=== PATIENT | male | born 1955 | race Caucasian/White ===

== ENCOUNTER 2022-04-11 16:08 | Outpatient (CLI) | payer OTHER, SELFPAY ==
[2022-04-11 16:54] LABS: Anion Gap 7 mmol/L (8-16); Blood Urea Nitrogen 28 mg/dL (9-20); Calcium 8.9 mg/dL (8.4-10.2); Carbon Dioxide 27 mmol/L (22-30); Chloride 101 mmol/L (98-107); Estimated Glomerular Filt Rate > 60; Glucose 112 mg/dL (65-110); Potassium 4.6 mmol/L (3.4-5.0); Sodium 135 mmol/L (137-145)
== END 2022-04-11 16:09 | disposition home or self-care (01) ==
PROVIDERS: PCP Family Medicine; Visit Provider Radiology Radiation Oncology
DX: I50.9 Heart failure, unspecified (principal); I42.9 Cardiomyopathy, unspecified
CPT/HCPCS: 36415; 80048

== ENCOUNTER 2022-04-25 08:53 | Outpatient (CLI) | payer OTHER, SELFPAY ==
[2022-04-25 10:27] LABS: Anion Gap 4 mmol/L (8-16); Blood Urea Nitrogen 32 mg/dL (9-20); Calcium 8.6 mg/dL (8.4-10.2); Carbon Dioxide 33 mmol/L (22-30); Chloride 101 mmol/L (98-107); Estimated Glomerular Filt Rate > 60; Glucose 109 mg/dL (65-110); Potassium 4.4 mmol/L (3.4-5.0); Sodium 138 mmol/L (137-145)
== END 2022-04-25 08:54 | disposition home or self-care (01) ==
LOC: ANHLAB 08:56
PROVIDERS: PCP Family Medicine; Visit Provider Internal Medicine Interventional Cardiology
DX: I10 Essential (primary) hypertension (principal)
CPT/HCPCS: 36415; 80048

== ENCOUNTER 2022-09-25 19:58 | Emergency (ER) | payer OTHER, SELFPAY ==
--- NOTE | ~2022-09-25 | CT_ITS ---
EXAMINATION: CT abdomen pelvis wo con DATE: 09/25/2022 20:36 INDICATION: rt flank pain TECHNIQUE: Computed tomography (CT) of the abdomen and pelvis was performed without intravenous contr ast. Automated exposure control and iterative reconstruction technique were employed. The dose-length product was 488.69 mGy-cm. COMPARISON: 08/02/2017. FINDINGS: Lower thorax: Unremarkable Liver: Normal. Biliary/Gallbladder: Cholelithiasis. No bile duct dilation. Pancreas: No mass or duct dilation. Spleen: Normal. Adrenals:No mass. Kidneys: No mass, stone, or hydronephrosis. GI tract: No small or large bowel dilation. Normal appendix. Mesentery/Peritoneum: No ascites, mass, or free air. Retroperitoneum: No mass. Pelvis: Pelvic organs are within normal limits. Soft Tissues: Soft tissues and body wall unremarkable. Bones: No acute osseous finding. Anterior screw and plate lower lumbar fusion from L4 to S1. Interbo dy devices are in good position. Redemonstration of fractured inferior fixation screws. IMPRESSION: No acute abdominopelvic process detected. Reviewed, dictated and finalized at location K.
[2022-09-25 20:04] VITALS: BP 127/79; PULSE 80; RESP 20; TEMP 35.9; O2SAT 99
--- NOTE | 2022-09-25 20:17 | ED.BACK ---
HPI - Back Pain/Injury General Chief Complaint: Back Pain/Injury Stated Complaint: found on ground, d/t back pain Time Seen by Provider: 09/25/22 20:13 History of Present Illness HPI Narrative: 7-year-old male presents to the emergency room for evaluation of right lower back pain. Patient states that he has had intermittent low back pain for 1 month, has not been taking any medications to relieve his symptoms and is not sought evaluation for it. Patient states the pain is worse with rotation and lateral bend. Patient denies any hematuria or urinary retention. No history of kidney stones. Patient states that family found him in the backyard lying on the ground because it was too painful for him to get up. Related Data Allergies Allergy/AdvReac Type Severity Reaction Status Date / Time No Known Allergies Allergy Verified 09/25/22 20:07 Review of Systems Review of Systems: CONSTITUTIONAL: Denies fever, chills, or sweats. EYES: Denies visual changes, redness, or discharge. ENT: Denies rhinorrhea, congestion, sore throat, or otalgia. CARDIOVASCULAR: Denies chest pain, palpitations, or edema. RESPIRATORY: Denies cough or dyspnea. GASTROINTESTINAL: Denies abdominal pain, nausea, vomiting, or diarrhea. GENITOURINARY: Denies dysuria or hematuria. SKIN: Denies rash or itching. MUSCULOSKELETAL: Reports lower back pain NEUROLOGIC: Denies headache, numbness, dizziness, or weakness. PSYCHIATRIC: Denies anxiety or depression. Exam Narrative: GENERAL: Well-appearing, well-nourished, no physical limitations, uncomfortable. HEAD: Normocephalic, atraumatic. EYES: Conjunctivae normal, PERRLA and EOMI. CHEST: Clear to auscultation. No respiratory distress. No wheezes rales or rhonchi. HEART: Regular rate and rhythm. No murmur heard. Normal peripheral pulses. BACK: No CVA tenderness; No midline lumbar tenderness, no step-offs, no bony abnormality; LROM with bilateral rotation and bilateral lateral bend. Tenderness over the right thoracolumbar fascia EXTREMITIES: Normal range of motion. No edema. No clubbing or cyanosis SKIN: Warm, dry, no rash. No noted wounds NEURO: No focal deficits. Alert and oriented x3. MAEW. CN's II-XI intact bilaterally, normal gait PSYCH: Cooperative. agitated Course Vital Signs Vital signs: Vital Signs Temperature 35.9 C L 09/25/22 20:04 Pulse Rate 80 09/25/22 20:04 Respiratory Rate 20 09/25/22 20:04 Blood Pressure 127/79 09/25/22 20:04 Pulse Oximetry 99 09/25/22 20:04 Oxygen Delivery Room Air 09/25/22 20:04 Temperature 35.9 C L 09/25/22 20:04 Pulse Rate 80 09/25/22 20:04 Respiratory Rate 20 09/25/22 20:04 Blood Pressure 127/79 09/25/22 20:04 Pulse Oximetry 99 09/25/22 20:04 Oxygen Delivery Room Air 09/25/22 20:04 MDM - Back Pain/Injury Lab Data Result diagrams: 09/25/22 21:03 09/25/22 21:03 Labs: Lab Results 09/25/22 09/25/22 09/25/22 Range/Units 20:28 21:03 21:03 WBC 5.3 (4.5-10.0) K/mm3 RBC 3.65 L (4.6-6.20) M/mm3 Hgb 11.2 L (14.0-18.0) g/dL Hct 34.0 L (42.0-52.0) % MCV 93.2 (80-100) fl MCH 30.7 (26-34) pg MCHC 32.9 (32-36) g/dl RDW 13.4 (11.5-14.5) % Plt Count 236 (150-375) k/mm3 MPV 9.9 (7.4-10.4) fl Immature Gran % (Auto) 0.2 (0-0.5) % Neut % (Auto) 52.4 (45.5-73.1) % Lymph % (Auto) 27.5 (18.3-44.2) % Gilchrist % (Auto) 10.9 H (2.6-8.5) % Eos % (Auto) 8.1 H (0-4.4) % Baso % (Auto) 0.9 (0.2-1.2) % Lymph # (Auto) 1.46 (0.9-3.2) K/mm3 Gilchrist # (Auto) 0.6 (0.1-0.6) K/mm3 Eos # (Auto) 0.4 H (0-0.3) K/mm3 Baso # (Auto) 0.1 (0.0-0.1) K/mm3 Abs Immat Gran (auto) 0.01 (0.00-0.031) K/mm3 Absolute Neuts (auto) 2.8 (1.3-6.7) K/mm3 Absolute Nucleated RBC 0.0 (0.0-0.012) K/mm3 Nucleated RBC % 0.0 (0.0-0.2) % Sodium 139 (137-145) mmol/L Potassium 4.0 (3.4-5.0) mmol/L Chloride 105 (98-107) mmol/L Carb
[2022-09-25 20:51] LABS: Appearance Urine Clear (Clear); Bilirubin Urine Negative (Negative); Blood Urine Negative (Negative); Color Urine Yellow (Yellow); Glucose Urine UA Negative (Negative); Ketones Urine Trace mg/dL (Negative); Leukocyte Esterase Ur Negative LEU/UL (Negative); Nitrate Urine Negative (Negative); Protein Urine Negative (Negative); Specific Grav Ur >= 1.030 (1.001-1.035); pH Urine 5.5 (5.0-9.0)
[2022-09-25 20:56] LABS: Mucus Urine Rare /lpf; RBC Urine 0-2 /hpf (0-2); Squamous Epithelial Cell Urine Rare /hpf (Few); WBC Urine 0-3 /hpf
[2022-09-25 21:02] LABS: Add Urine Microscopic? YES
[2022-09-25] MEDS: diazePAM INJ (*CRX) 10 MG/2 ML SYRINGE 5 MG IV PUSH (21:07)
[2022-09-25 21:13] LABS: Basophils Absolute Auto 0.1 K/mm3 (0.0-0.1); Basophils Percent Auto 0.9 % (0.2-1.2); Eosinophils Absolute Auto 0.4 K/mm3 (0-0.3); Eosinophils Percent Auto 8.1 % (0-4.4); Hemoglobin 11.2 g/dL (14.0-18.0); Immature Granulocyte Absolute 0.01 K/mm3 (0.00-0.031); Immature Granulocyte Percent A 0.2 % (0-0.5); Lymphocytes Absolute Auto 1.46 K/mm3 (0.9-3.2); Lymphocytes Percent Auto 27.5 % (18.3-44.2); Mean Corpuscular HGB Conc 32.9 g/dl (32-36); Mean Corpuscular Hemoglobin 30.7 pg (26-34); Mean Corpuscular Volume 93.2 fl (80-100); Mean Platelet Volume 9.9 fl (7.4-10.4); Monocytes Absolute Auto 0.6 K/mm3 (0.1-0.6); Monocytes Percent Auto 10.9 % (2.6-8.5); Neutrophils Absolute Auto 2.8 K/mm3 (1.3-6.7); Neutrophils Percent Auto 52.4 % (45.5-73.1); Platelet Count Result 236 k/mm3 (150-375); Red Blood Count 3.65 M/mm3 (4.6-6.20); Red Cell Distribution Width 13.4 % (11.5-14.5); White Blood Count 5.3 K/mm3 (4.5-10.0)
[2022-09-25 21:34] LABS: Alanine Aminotransferase 42 U/L (6-50); Albumin Level 4.3 g/dL (3.5-5.1); Alkaline Phosphatase 62 U/L (38-126); Anion Gap 9 mmol/L (8-16); Aspartate Amino Transferase 35 U/L (17-59); Bilirubin,Total 0.5 mg/dL (0.2-1.3); Blood Urea Nitrogen 26 mg/dL (9-20); Calcium 8.4 mg/dL (8.4-10.2); Carbon Dioxide 25 mmol/L (22-30); Chloride 105 mmol/L (98-107); Estimated CRCL calculation 54 ml/min; Estimated Glomerular Filt Rate > 60; Glucose 139 mg/dL (65-110); Lipase 66 U/L (23-300); Sodium 139 mmol/L (137-145)
== END 2022-09-25 22:15 | disposition home or self-care (01) ==
PROVIDERS: Emergency Provider Nurse Practitioner Family; PCP Family Medicine
DX: S39.012A Strain of muscle, fascia and tendon of lower back, initial encounter (principal); X58.XXXA Exposure to other specified factors, initial encounter
CPT/HCPCS: 36415; 74176; 80053; 81001; 83690; 85025; 96374; 99284; J3360

== ENCOUNTER 2024-02-07 04:50 | Emergency (ER) | payer MEDICARE, SELFPAY ==
[2024-02-07 04:56] VITALS: BP 138/72; PULSE 75; RESP 18; TEMP 36.4; O2SAT 100
[2024-02-07] MEDS: HYDROcodone/acetaminophen (*CRX) 5-325 MG TABLET 1 TAB PO (05:23)
--- NOTE | 2024-02-07 05:28 | ED.BACK ---
HPI - Back Pain/Injury General Chief Complaint: Back Pain/Injury Stated Complaint: back, neck pain, pain all over Time Seen by Provider: 02/07/24 04:56 History of Present Illness HPI Narrative: Patient is a 68-year-old male who presents to the emergency department at this morning complaining of lower back pain. Patient admits that he does have history of degenerative disc disease affecting the majority of his lower spine. Patient has seen [facility] protection specialist which did not want to perform eye surgery and wanted to 1st attempt pain management. Patient states that he does take ibuprofen at home for the pain which does help sometimes, however, the pain today was very uncomfortable prompting him to come to the emergency department. Patient did take 1 dose of ibuprofen prior to arrival which he states did improve his pain slightly. Patient denies any recent falls or trauma to his lower back. He denies any urinary symptoms including dysuria or hematuria and denies any history of kidney stones. patient states that this is similar to his previous chronic back pain. He denying any history of IV drug use and any history of cancer. Patient admits that his abdomen has been distended which is new for him, but denies any nausea or vomiting episodes at home and denies any constipation. Patient had a bowel movement earlier this morning which was normal and is passing gas, denies any bowel or bladder incontinence. He denies any fevers or chills at home and denies any exposure to sick contacts. There are no other modifying, alleviating, or precipitating factors at this time. Related Data Allergies Allergy/AdvReac Type Severity Reaction Status Date / Time No Known Allergies Allergy Verified 02/07/24 05:08 Review of Systems Review of Systems: All systems are reviewed and are negative unless stated otherwise in the HPI. PMFSH Comments Past medical history significant for chronic degenerative disc disease of the spine, denies any significant surgical history of family history, denies alcohol abuse or illicit drug use. Exam Narrative: General: Alert, awake, afebrile, in no acute distress. HEENT: PERRL, no rhinorrhea, no post nasal drip, oropharynx clear. Neck: Trachea midline, no JVD, no lymphadenopathy. Cardiovascular: Regular rate and rhythm, no murmurs, rubs or gallops, no peripheral edema. Respiratory: Clear to auscultation bilaterally, no tachypnea, no wheezing, no rhonchi, no rubs, no respiratory distress. Abdomen: Soft, nontender, nondistended, no rebound, no guarding, no peritoneal signs. Musculoskeletal: No joint swelling or deformity, normal muscle tone. Skin: No rashes or petechia, no signs of infection. Psychiatric: Alert and oriented, normal behavior and judgment for situation. Neurological: Alert and oriented to person, place, and time. Follows all commands. No focal deficits, speech is clear and fluent. Course Vital Signs Vital signs: Vital Signs Temperature 97.6 F 02/07/24 04:56 Pulse Rate 75 02/07/24 04:56 Respiratory Rate 18 02/07/24 04:56 Blood Pressure 138/72 02/07/24 04:56 Pulse Oximetry 100 02/07/24 04:56 Oxygen Delivery Room Air 02/07/24 04:56 Temperature 97.6 F 02/07/24 04:56 Pulse Rate 85 02/07/24 05:46 Respiratory Rate 16 02/07/24 05:46 Blood Pressure 138/72 02/07/24 04:56 Pulse Oximetry 99 02/07/24 05:46 Oxygen Delivery Room Air 02/07/24 04:56 MDM - Back Pain/Injury MDM Narrative Medical decision making narrative: The patient was evaluated by myself in the emergency department. History is obtained from patient who is an independent historian and physical exam was performed. External medical records were reviewed at this time. IV was established and pertinent tests were ordered. Patient was administered and oral [place] 5-325 mg for his lower back pain and a Lidoderm patch placed along his lower lumbar spinal region. Laboratory results obtained revealin
[2024-02-07 05:42] LABS: Basophils Absolute Auto 0.1 K/mm3 (0.0-0.1); Basophils Percent Auto 1.1 % (0.2-1.2); Eosinophils Absolute Auto 0.4 K/mm3 (0-0.3); Hematocrit 37.2 % (42.0-52.0); Hemoglobin 12.1 g/dL (14.0-18.0); Immature Granulocyte Absolute 0.03 K/mm3 (0.00-0.031); Immature Granulocyte Percent A 0.5 % (0-0.5); Lymphocytes Absolute Auto 1.69 K/mm3 (0.9-3.2); Mean Corpuscular HGB Conc 32.5 g/dl (32-36); Mean Corpuscular Hemoglobin 30.6 pg (26-34); Mean Corpuscular Volume 93.9 fl (80-100); Monocytes Absolute Auto 0.8 K/mm3 (0.1-0.6); Monocytes Percent Auto 12.3 % (2.6-8.5); Neutrophils Absolute Auto 3.3 K/mm3 (1.3-6.7); Neutrophils Percent Auto 52.1 % (45.5-73.1); Platelet Count Result 259 k/mm3 (150-375); Red Blood Count 3.96 M/mm3 (4.6-6.20); Red Cell Distribution Width 13.4 % (11.5-14.5); White Blood Count 6.3 K/mm3 (4.5-10.0)
--- NOTE | 2024-02-07 05:45 | PC.NURSE ---
this RN entered room to reapply pulse oximeter. Pt asleep on stretcher, in no obvious distress. Pts IV noted to be laying on counter. Pts family states pt ripped out IV . EDP notified.
[2024-02-07 05:46] VITALS: PULSE 85; RESP 16; O2SAT 99
[2024-02-07 05:54] LABS: Alanine Aminotransferase 37 U/L (6-50); Alkaline Phosphatase 80 U/L (38-126); Anion Gap 4 mmol/L (8-16); Aspartate Amino Transferase 35 U/L (17-59); Bilirubin,Total 0.6 mg/dL (0.2-1.3); Blood Urea Nitrogen 30 mg/dL (9-20); Calcium 9.1 mg/dL (8.4-10.2); Carbon Dioxide 29 mmol/L (22-30); Chloride 105 mmol/L (98-107); Estimated CRCL calculation 48 ml/min; Estimated Glomerular Filt Rate 55; Glucose 110 mg/dL (65-110); Lipase 99 U/L (23-300); Potassium 3.7 mmol/L (3.4-5.0); Sodium 138 mmol/L (137-145)
[2024-02-07 05:54] LABS: Lactic Acid Reflex 1.6 mmol/L (0.7-2.0)
[2024-02-07] MEDS: LIDOCAINE 5% PATCH 1 PATCH TRANSDERM (06:11)
== END 2024-02-07 06:29 | disposition home or self-care (01) ==
PROVIDERS: Emergency Provider Emergency Medicine; PCP Family Medicine
DX: M54.50 Low back pain, unspecified (principal); G89.29 Other chronic pain
CPT/HCPCS: 36415; 80053; 82248; 83605; 83690; 85025; 99283; A9270

== ENCOUNTER 2024-03-10 08:11 | Outpatient (CLI) | payer MEDICARE, SELFPAY ==
--- NOTE | 2024-03-10 | ECHO_ITS ---
Patient Info Name: Eliud Tovar Age: 68 years : 1955 Gender: Male Ht: 65 in Wt: 176 lbs BSA: 1.94 m2 HR: 77 bpm BP: 117 / 69 mmHg Heart Rhythm: Sinus Rhythm Technical Quality: Fair Exam Date: 03/10/2024 8:32 AM Exam Location: Echo Lab Patient Status: Outpatient Admit Date: 03/10/2024 Staff Ordering Physician: ClementineRuby MD Career Professional: Carlota Ca RDCS Attending Provider: Clementine, Ruby Garcia MD Referring Physician: Kamilah FONSECA; Exam Type: CA echo doppler color flow Study Info Indications I51.7 - Cardiomegaly Complete two-dimensional, color flow and Doppler transthoracic echocardiogram is performed. Strain analysis performed. Summary 1. Complete two-dimensional, color flow and Doppler transthoracic echocardiogram is performed. 2. Left ventricular chamber dimension is normal. 3. Left ventricular systolic function is mildly reduced, estimated at 40-45%. The apex appears to be severely hypokinetic. Definity was not administered -- cannot rule out other regional wall motion abnormalities. 4. The left ventricular diastolic function is grade I diastolic dysfunction. 5. Global longitudinal strain is abnormal at -11 %. 6. Right ventricular systolic function is normal. 7. Left atrial chamber dimension is moderately enlarged. 8. There is moderate aortic valve calcification. 9. There is mild aortic valve stenosis. 10. Normal inferior vena cava with >50% collapse upon inspiration consistent with normal right atrial pressure. Left Ventricle Left ventricular chamber dimension is normal. Left ventricular systolic function is mildly reduced, estimated at 40-45%. The apex appears to be severely hypokinetic. Definity was not administered -- cannot rule out other regional wall motion abnormalities. There is no increased left ventricular wall thickness. The left ventricular diastolic function is grade I diastolic dysfunction. Global longitudinal strain is abnormal at -11 %. Right Ventricle Linear artifact in right ventricle suggestive of catheter(s), pacemaker lead(s), or ICD lead(s). Right ventricular chamber dimension is normal. Right ventricular systolic function is normal. Left Atria Left atrial chamber dimension is moderately enlarged. Right Atria Linear artifact in the right atrium suggestive of catheter(s), pacemaker lead(s), or ICD lead(s). Right atrial chamber dimension is normal. Atrial Septum Intact interatrial septum visualized by color flow imaging. Aortic Valve The aortic valve is probable trileaflet. There is mild aortic valve stenosis. There is no aortic valve regurgitation. There is moderate aortic valve calcification. Pulmonic Valve The pulmonic valve is not well visualized. There is trace pulmonic regurgitation. Mitral Valve There is trace mitral valve regurgitation. Tricuspid Valve There is trace tricuspid valve regurgitation. Pericardium/Pleural There is no pericardial effusion. Inferior Vena Cava Normal inferior vena cava with >50% collapse upon inspiration consistent with normal right atrial pressure. Aorta The aortic root size at the sinus of Valsalva is normal. Left Ventricular Outflow Tract Name Value Normal LVOT 2D LVOT Diameter 2.0 cm LVOT Doppler
== END 2024-03-10 08:12 | disposition home or self-care (01) ==
PROVIDERS: PCP Family Medicine; Visit Provider Internal Medicine Interventional Cardiology
DX: I42.0 Dilated cardiomyopathy (principal)
CPT/HCPCS: 93306

== ENCOUNTER 2024-06-18 11:09 | Outpatient (CLI) | payer MEDICARE, SELFPAY ==
--- NOTE | ~2024-06-18 | XR_ITS ---
XR shoulder LT min 2V Ordering provider: Med Forde MD History: . PAIN IN LEFT SHOULDER, PACEMAKER 1 YR AGO . Comparison: None. FINDINGS: BONES: No acute fracture or dislocation. Degenerative changes in the area of the greater tuberosity. JOINT SPACES: The acromioclavicular joint shows osteoarthritic changes. The glenohumeral joint is nor mal. SOFT TISSUES: Normal. Left bipolar pacemaker. IMPRESSION: No acute osseous abnormality left shoulder. Reviewed, dictated and finalized at location A.
== END 2024-06-18 11:10 | disposition home or self-care (01) ==
PROVIDERS: PCP Family Medicine; Visit Provider Orthopaedic Surgery
DX: M25.512 Pain in left shoulder (principal)
CPT/HCPCS: 73030

== ENCOUNTER 2024-08-09 10:47 | Outpatient (CLI) | payer MEDICARE, SELFPAY ==
[2024-08-09 11:37] LABS: Eosinophils Absolute Auto 0.3 K/mm3 (0-0.3); Eosinophils Percent Auto 8.3 % (0-4.4); Hematocrit 38.3 % (42.0-52.0); Hemoglobin 12.7 g/dL (14.0-18.0); Immature Granulocyte Absolute 0.01 K/mm3 (0.00-0.031); Immature Granulocyte Percent A 0.3 % (0-0.5); Lymphocytes Absolute Auto 1.31 K/mm3 (0.9-3.2); Lymphocytes Percent Auto 32.9 % (18.3-44.2); Mean Corpuscular HGB Conc 33.2 g/dl (32-36); Mean Corpuscular Hemoglobin 30.9 pg (26-34); Mean Corpuscular Volume 93.2 fl (80-100); Mean Platelet Volume 10.2 fl (7.4-10.4); Monocytes Absolute Auto 0.5 K/mm3 (0.1-0.6); Monocytes Percent Auto 11.3 % (2.6-8.5); Neutrophils Absolute Auto 1.8 K/mm3 (1.3-6.7); Neutrophils Percent Auto 46.2 % (45.5-73.1); Platelet Count Result 247 k/mm3 (150-375); Red Blood Count 4.11 M/mm3 (4.6-6.20); Red Cell Distribution Width 13.5 % (11.5-14.5)
[2024-08-09 11:51] LABS: Alanine Aminotransferase 71 U/L (6-50); Albumin Level 4.2 g/dL (3.5-5.1); Alkaline Phosphatase 65 U/L (38-126); Anion Gap 7 mmol/L (4-12); Aspartate Amino Transferase 44 U/L (17-59); Bilirubin,Total 0.7 mg/dL (0.2-1.3); Blood Urea Nitrogen 26 mg/dL (9-20); Calcium 9.3 mg/dL (8.4-10.2); Carbon Dioxide 33 mmol/L (22-30); Chloride 98 mmol/L (98-107); Estimated Glomerular Filt Rate 50; Glucose 98 mg/dL (65-110); Sodium 138 mmol/L (137-145)
[2024-08-09 12:20] LABS: Prostate Specific Antigen 1.3 ng/mL (< OR = 4.0)
== END 2024-08-09 10:48 | disposition home or self-care (01) ==
PROVIDERS: PCP Family Medicine; Visit Provider Family Medicine
DX: E03.9 Hypothyroidism, unspecified (principal); I10 Essential (primary) hypertension; Z12.5 Encounter for screening for malignant neoplasm of prostate
CPT/HCPCS: 36415; 80053; 84153; 84481; 85025; 86376; G0103

== ENCOUNTER 2025-09-29 15:26 | Outpatient (CLI) | payer MEDICARE, SELFPAY ==
[2025-09-29 17:33] LABS: Blood Urea Nitrogen 23 mg/dL (9-20); Calcium 8.8 mg/dL (8.4-10.2); Carbon Dioxide 30 mmol/L (22-30); Estimated Glomerular Filt Rate 51; Glucose 93 mg/dL (65-110); Potassium 4.6 mmol/L (3.4-5.0); Sodium 137 mmol/L (137-145)
[2025-09-29 17:45] LABS: Anion Gap 8 mmol/L (4-12); Chloride 99 mmol/L (98-107)
--- OUTSIDE RECORDS SUMMARY | 2025-09-29 20:57 | XMS_ITS | Encounter Summary ---
Author Organization [facility] Address [address] [place] [address] Phone Care Team Providers Care Claim Examiner Name Role Phone Cass Newsome [facility] Unavail Osiel Dove MD Primary Care Provider [phone] Encounter Details Date Type Department Care Team (Late st Contact Info) Description 09/14/2025 Remote Device Check [facility] Cardiology [address] [facility] [address] [place] [phone] Bobby Avila MD PhD [address] [address] Social History Tobacco Use Types Packs/Day Years Used Date Smoking Tobacco: Never Passive Smoke Exposure: Current Smokeless Tobacco: Never Alcohol Use Standard Drinks/Week Comments Not Currently 0 (1 standard drink = 0.6 oz pur e alcohol) [facility] Utilities Answer Date Recorded In the past 12 months has [place] electric, gas, oil, or water company threatened to shut off services in your home? No 11/14/2023 Social Connection and Isolation Panel Answer Date Recorded In a typical week, how many times do you talk on the phone with family, friends, or neighbors? More than three times a week 11/14/2023 How often do you get togethe r with friends or relatives? More than three times a week 11/14/2023 How often do you attend chur ch or quaker services? Never 11/14/2023 Do you belong to any clubs o r organizations such as advent groups, unions, fraternal or athletic groups, or school groups? No 11/14/2023 How often do you attend meet ings of the clubs or organizations you belong to? Never 11/14/2023 Are you , , di vorced, , never , or living with a partner? 11/14/2023 Overall Financial Resource Strain (CARDIA) Answe r Date Recorded How hard is it for you to pa y for the very basics like food, housing, medical care, and heating? Not very hard 11/14/2023 PHQ-2 Answer Date Recorded PHQ-2 Total Score (If total score is 3 or more points, staff should administer the PHQ-9) 0 05/31/2025 Hunger Vital Sign Answer Date Recorded Within the past 12 months, y ou worried that your food would run out before you got the money to buy more. Never true 11/14/20 23 Within the past 12 months, t he food you bought just didn't last and you didn't have money to get more. Never true 11/14/2023 PRAPARE - Transportation Answer Date Re corded In the past 12 months, has l ack of transportation kept you from medical appointments or from getting medications? No 10/25 In the past 12 months, has l ack of transportation kept you from meetings, work, or from getting things needed for daily living? No 11/14/2023 Housing Stability Vital Sign Answer Willie e Recorded In the last 12 months, was t here a time when you were not able to pay the mortgage or rent on time? No 11/14/2023 In the last 12 months, how many places have you lived? 1 11/14/2023 In the last 12 months, was t here a time when you did not have a steady place to sleep or slept in a retirement (including now)? No 11/14/2023 AUDIT-C Answer Date Recorded Q1: How often do you have a drink containing alcohol? Never 08/23/2025 Q2: How many drinks containi ng alcohol do you have on a typical day when you are drinking? Patient does not drink Q3: How often do you have si x or more drinks on one occasion? Never 08/23/2025 Personal Safety Answer Date Recorded Have you ever been in or are you currently in a harmful physical or emotional relationship or is someone making you feel afraid or unsafe? 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 Gender Identity Not on file Sexual Orientation Not on file Occupation Industry Job Start Date Job End Date retired Not on file Not on file Not on file documented as of this encounter Plan of Treatment Not on file documented as of this encounter Procedures Procedure Name Priority Date/Time Associated Diagnosis Comments DEVICE CHECK - REMOTE Routine 09/14/2025 documented in this encounter Results * DEVICE CHECK - REMOTE (09/14/2025) Anatomical Region Laterality Modality Other 09/14/2025 09/14/2025 Narrative 09/29/2025 12:39 PM DRYWALL CONTRACTOR Device Summary Remote interrogation of [place] [employer]. ICD Date of Implant: Feb 14, 2023 Programmed Mode: DDDR Lower Rate: 60 bpm Device Functionality Presenting rhythm: As-Vs 90 Device: Normal function Estimated Battery Longevity: 10 years 6 months Leads: Appear stable Atrial pacin.0 % RV pacin.0 % Episodes Since 06-20-25 Ten non-sustained AT episodes One NS-VT episode. Duration: 4 seconds. Rate: 173 Bryn WOODALL, BSN Procedure Note Bobby Avila MD PhD - 09/29/2025 Device Summary Remote interrogation of [place] [employer]. ICD Date of Implant: Feb 14, 2023 Programmed Mode: DDDR Lower Rate: 60 bpm Device Functionality Presenting rhythm: As-Vs 90 Device: Normal function Estimated Battery Longevity: 10 years 6 months Leads: Appear stable Atrial pacin.0 % RV pacin.0 % Episodes Since 06-20-25 Ten non-sustained AT episodes One NS-VT episode. Duration: 4 seconds. Rate: 173 Bryn WOODALL, BSN Bobby Avila MD PhD [facility] [place] [facility] Final Result documented in this encounter Visit Diagnoses Not on filedocumented in this encounter Care Teams Claim Examiner Relationship Specialty Start Date End Date Osiel Gann MD [address] [facility] [facility] [address] [place] [address] [place] [id number] PCP - General Family Medicine 08/23/[address] Operative Supervisor 10/13/23 documented as of this encounter
--- OUTSIDE RECORDS SUMMARY | 2025-09-29 20:57 | XMS_ITS | Clinical Summary ---
Author Organization [facility] Address [address] [place] [address] Care Team Providers Care Pump Installation And Servicer Name Role Phone Osiel Gann MD Primary Care Provider [phone] Bobby Avila MD Unavailable [phone] Allergies No known active allergies Medications furosemide (LASIX) 40 MG tablet Take 1 tablet (40 mg total) by mouth daily. Active ASPIRIN LOW DOSE 81 MG tablet Take 1 tablet (81 mg total) by mouth daily. Active rosuvastatin (CRESTOR) 40 MG tablet Take 1 tablet (40 mg total) by mouth daily. 02/21/2025 Active hydrALAZINE (APRESOLINE) 50 MG tablet Take 1 tablet (50 mg total) by mouth 3 (three) times daily. 02/21/2025 Active ezetimibe (ZETIA) 10 MG tablet Take 1 tablet (10 mg total) by mouth daily. 03/10/2025 Active metoprolol succinate ER (TOPROL-XL) 25 MG 24 hr tablet Take 1 tablet (25 mg total) by mouth daily. 03/31/2025 Active pramipexole (MIRAPEX) 1.5 MG tablet Take 1 tablet (1.5 mg total) by mouth 2 (two) times daily. 02/21/2025 Active DULoxetine (CYMBALTA) 30 MG capsule Take 1 capsule (30 mg total) by mouth daily. 11/25/2024 Active HYDROcodone-irena taminophen (NORCO) 10-325 MG tablet Take 1 tablet by mouth every 8 (eight) hours as needed. FOR PAIN 03/22/2025 Active irbesartan (AVAPRO) 150 MG tablet Take 1 tablet (150 mg total) by mouth daily. 11/25/2024 Active Active Problems No known active problems Social History Tobacco Use Types Packs/Day Years Used Date Smoking Tobacco: Never Smokeless Tobacco: Never Tobacco Cessation:Counseling Given: Not Answered Alcohol Use Standard Drinks/Week Comments Not Currently 0 (1 standard drink = 0.6 oz pur e alcohol) rare Sex and Gender Information Value Date Recorded Sex Assigned at Male 04/07/2025 5:40 AM CDT Legal Sex Male 8:02 PM CDT Gender Identity Not on file Sexual Orientation Not on file Last Filed Vital Signs Vital Sign Reading Time Taken Comments Blood Pressure 161/89 04/07/2025 9:18 AM CDT Pulse 60 04/07/2025 9:18 AM CDT Temperature 36.2 C (97.2 F) 04/07/2025 9:18 AM CDT Respiratory Rate 16 04/07/2025 9:18 AM CDT Oxygen Saturation 96% 04/07/2025 9:18 AM CDT Inhaled Oxygen Concentration - - Weight 82.3 kg (181 lb 7 oz) 04/07/2025 6:30 AM CDT Height 165.1 cm (5' 5) 04/07/2025 6:30 AM CDT Body Mass Index 30.19 04/07/2025 6:30 AM CDT Plan of Treatment Health Maintenance Due Date Last Done Comments Colorectal Cancer Screening Colonoscopy (10 Years) 1955 Hepatitis C 1973 Annual Medicare Wellness Visit 2021 COVID-19 Vaccine ( season) 2025 12/09/2021, 06/11/2021, 05/08/2021 Influenza Adult (#1) 2025 11/14/2023, 09/12/2022, 09/13/2020, Additional history exists DTaP, Tdap and Td Vaccines (3 - Td or Tdap) 05/18/2026 05/18/2016, 02/22/2016 RSV Immunization or 60+ Years (1 - 1-dose 75+ series) 2031 Zoster Vaccines Completed 12/09/2021, 08/08/2021 Pneumococcal Vaccine: 50+ Years Completed 04/28/2023 Hepatitis A Vaccines Aged Out No long er eligible based on patient's age to complete this topic Meningococcal B Vaccine Aged Out No l onger eligible based on patient's age to complete this topic Meningococcal Vaccine Aged Out No gagandeep azul eligible based on patient's age to complete this topic RSV Immunizations Under 20 Months Aged Out No longer eligible based on patient's age to complete this topic Insurance [employer] MEDICARE Care Teams Pump Installation And Servicer Relationship Specialty Start Date End Date Osiel Gann MD [address] [place] [address] [id number] PCP - General FAMILY PRACTICE 03/28/25 Bobby Avila MD [address] [place] [address] CARDIOLOGY 04/01/25
--- OUTSIDE RECORDS SUMMARY | 2025-09-29 20:57 | XMS_ITS | Encounter Summary ---
Author Organization [facility] Healthcare Address [address] [place] [address] Care Team Providers Care Seat Pack Inspector Name Role Phone Cass Newsome Unavailable UnavailMallory Jo RN Unavailable [phone] Osiel Gann MD Primary Care Provider [phone] Encounter Details Date Type Department Care Team (Late st Contact Info) Description 11/14/2023 TCC Initial Eligibility Review [facility] [address] [phone] Alexis Kee RN Social History Tobacco Use Types Packs/Day Years Used Date Smoking Tobacco: Never Passive Smoke Exposure: Current Smokeless Tobacco: Never Alcohol Use Standard Drinks/Week Comments Not Currently 0 (1 standard drink = 0.6 oz pur e alcohol) [facility] Utilities Answer Date Recorded In the past 12 months has [employer], gas, oil, or water [employer] threatened to shut off services in your [...] 11/14/2023 How often do you attend chur or samaritan services? Never 11/14/2023 Do you belong to any clubs o r organizations such as jain groups, unions, fraternal or athletic groups, or school groups? No 11/14/2023 How often do you attend meet ings of the clubs or organizations you belong to? Never 11/14/2023 Are you , , di vorced, , never , or living with a partner? 11/14/2023 AUDIT-C Answer Date Recorded Frequency of Alcohol Consumption Not on file 08/07/2023 Q2: How many drinks containi ng alcohol do you have on a typical day when you are drinking? Patient does not drink Q3: How often do you have si x or more drinks on one occasion? Never 08/07/2023 Overall Financial Resource Strain (CARDIA) Answe r Date Recorded How hard is it for you to pa y for the very basics like food, housing, medical care, and heating? Not very hard 11/14/2023 PHQ-2 Answer Date Recorded PHQ-2 Total Score (If total score is 3 or more points, staff should administer the PHQ-9) 0 04/28/2023 Hunger Vital Sign Answer Date Recorded Within [...] place to sleep or slept in a intermediate (including now)? No 11/14/2023 Personal Safety Answer Date Recorded Have you ever been in or are you currently in a harmful physical or emotional relationship or is someone making you feel afraid or unsafe? Denies 11/13/2023 Sex and Gender Information Value Date Recorded Sex Assigned at Not on file Legal Sex Male 3:51 AM STACKER DRIVER Gender Identity Not on file Sexual Orientation Not on file Occupation Industry Job Start Date Job End Date retired Not on file Not on file Not on file documented as of this encounter Functional Status * Difference in Last Two David Scores Answer Date of Assessment Author 0 11/16/2023 8:00 AM STACKER DRIVER Yolanda Flor, JOSE C * Question Answer Date of Assessment Author Acevedo Fall Risk Score (Score >= 45 places fall precaution order) 35 11/16/2023 8:00 AM STACKER DRIVER Stacey Flor RN Prior Fall Event (Autopopulated from EMR) None found 11/16/2023 8:00 AM STACKER DRIVER Eva Flor RN * MAP (mmHg) Answer Date of Assessment Author 103 11/16/2023 4:09 AM STACKER DRIVER Maria Del Rosario Chawla * Question Answer Date of Assessment Author BP Location Right arm 11/16/2023 11:00 AM STACKER DRIVER Shelia Iniguez BP Method Automatic 11/16/2023 11:00 AM STACKER DRIVER Shelia Iniguez * Fall Risk Interventions Question Answer Date of Assessment Author All Low Fall Interventions Applied Yes 11/16/2023 8:00 AM Stacey William RN All Moderate Fall Interventions Applied Yes 11/16/2023 8:00 AM Stacey William, JOSE C All High Fall Risk Interventions Applied No 11/16/2023 8:00 AM Stacey William RN All High Risk Interventions EXCEPT: Bed alarm;Chair alarm 11/16/2023 8:00 AM STACKER DRIVER Stacey Flor, JOSE C Reason For Exception(s) MFS 11/15/2023 9:15 P M STACKER DRIVER Jaskaran Metz RN * Question Answer Date of Assessment Author PT Functional Mobility Pt is up ad dustin i n hospital room. 11/14/2023 9:59 AM STACKER DRIVER Jennifer Isaac, PT * Question Answer Date of Assessment Author OT Functional Mobility Pt presents supin e in bed. INDEP for all functional mobility w/o AD, including sup<>sit, sit<>stand and functional amb EOB<>door x2. Pt demos good dynamic standing balance. 11/14/2023 9:58 AM STACKER DRIVER Adamaris Morris, OT OT Self Care Pt is INDEP for ADLs . Lateral, distal, overhead reach appropriate for UB/LB dressing. Balance appropriate for functional transfers and ADLs performed in sitting or standing. 11/14/2023 9:58 AM STACKER DRIVER Adamaris Morris OT * B.M.A.T. - Bedside Mobility Assessment Tool for Nurses Question Answer Date of Assessment Author Is patient able to participate in the BMAT? Yes 11/16/2023 8:00 AM Eva William RN BMAT Level Level 4 - Green 11/16/2023 8:00 AM STACKER DRIVER Stacey Dinh RN * Question Answer Date of Assessment Author 1. Has the patient self-repo rted, presented with clinical signs of, or have a documented history of any of the following within the past 30 days? No 11/14/2023 2:47 AM Abel Almanzar RN * Self-Injurious Risk Level Answer Date of Assessment Author No risk level 11/14/2023 2:47 AM Abel Almanzar RN * Pressure Injury Prevention Question Answer Date of Assessment Author Pressure Ulcer Prevention Interventions Keep skin clean and dry (Sensory Perception/Moisture ) 11/16/2023 8:00 AM Stacey William RN 2 Nurse Skin Assessment Elizabeth Roman RN 11/14/20 12:30 AM Abel Almanzar RN * Transdermal Patch Admission Assessment Question Answer Date of Assessment Author Transdermal Patch Location on Admission Right shoulder 11/14/2023 12:30 AM Hina Almanzar RN Transdermal Patch Assessment on Admission Removed 11/14/2023 7:30 AM Radhika Almanzar RN * Integumentary Question Answer Date of Assessment Author Skin Color Appropriate for ethnicity 11/15/2023 9:15 PM Jaskaran Chavez RN Skin Condition/Temp Warm;Dry 11/15/2023 9:15 PM T Jaskaran Metz, JOSE C Skin Integrity Pustule 11/15/2023 9:15 PM Jaskaran Mcgrath RN Skin Turgor Non-tenting 11/15/2023 9:15 PM Jaskaran Iniguez RN Integumentary (WDL) WDL 11/16/2023 8:00 AM Stacey Alexandra RN Skin Location Lt upper thigh 11/15/2023 9:00 AM STACKER DRIVER Keren Godoy RN * Question Answer Date of Assessment Author Percent Meal Eaten (%) 50 11/16/2023 10:00 A M STACKER DRIVER Shelia Daily Feeding Level of Assistance Able to feed self 11/16/2023 10:00 AM STACKER DRIVER Tory Daily Appetite Fair 11/16/2023 10:00 AM STACKER DRIVER Shelia Iniguez * Question Answer Date of Assessment Author BP Location Right arm 11/16/2023 11:00 AM STACKER DRIVER Shelia Iniguez BP Method Automatic 11/16/2023 11:00 AM STACKER DRIVER Shelia Iniguez * Fall Risk Interventions Question Answer Date of Assessment Author All Low Fall Interventions Applied Yes 11/16/2023 8:00 AM Stacey William, JOSE C All Moderate Fall Interventions Applied Yes 11/16/2023 8:00 AM Stacey William, JOSE C All High Fall Risk Interventions Applied No 11/16/2023 8:00 AM Stacey William, JOSE C All High Risk Interventions EXCEPT: Bed alarm;Chair alarm 11/16/2023 8:00 AM Stacey William, JOSE C Reason For Exception(s) MFS 11/15/2023 9:15 P M STACKER DRIVER Jaskaran Metz RN * ADL Screening Question Answer Date of Assessment Author Patient's Vision Adequate to Safely Complete Daily Activities Yes 11/14/2023 12:30 AM Hina Almanzar RN Patient's Judgement Adequate to Safely Complete Daily Activities Yes 11/14/2023 12:30 AM Hina Almanzar RN Patient's Memory Adequate to Safely Complete Daily Activities Yes 11/14/2023 12:30 AM Hina Almanzar RN Patient Able to Express Needs/Desires Yes 11/14/2023 12:30 AM Hina Almanzar RN Dressing Independent 11/14/2023 12:30 AM Abel Pham RN Grooming Independent 11/14/2023 12:30 AM Abel Pham RN Feeding Independent 11/14/2023 12:30 AM Abel Pham RN Bathing Independent 11/14/2023 12:30 AM Abel Pham RN Toileting Independent 11/14/2023 12:30 AM Abel Pham RN In/Out Bed Independent 11/14/2023 12:30 AM Abel Pham RN Walks in Home Independent 11/14/2023 12:30 AM Abel Boswell RN Weakness of Legs None 11/14/2023 12:30 AM Abel Almanzar RN Weakness of Arms/Hands None 11/14/2023 12:30 A M Abel Almanzar RN Hearing - Right Ear Functional 11/14/2023 12:[address] Abel Sears RN Hearing - Left Ear Functional 11/14/2023 12:30 AM CS T Abel Sears RN Dominant hand? Right 11/14/2023 12:30 AM Abel Ghosh RN Decline in ADLs in last 2 weeks? No 11/14/2023 12:30 AM Hina Almanzar RN * Therapy Consults Question Answer Date of Assessment Author PT Evaluation Needed 2 11/14/2023 12:30 AM Abel Almanzar RN OT Evaluation Needed 2 11/14/2023 12:30 AM Abel Almanzar RN REINFORCED STEEL PLACING SUPERVISOR Evaluation Needed 2 11/14/2023 12:30 AM Abel Almanzar RN * Assistive Devices Question Answer Date of Assessment Author Assistive Devices/DME None 11/14/2023 12:30 AM Abel Almanzar RN * Hygiene Question Answer Date of Assessment Author Hygiene Level of Assistance Independent 11/16/2023 12:00 PM Shelia Carvalho Toileting: Assistance with Up to bathroom toilet 11/15/2023 7:48 PM Maria Del Rosario Davis Toileting: Level of assistance Independent 11/15/2023 7:48 PM Maria Del Rosario Davis Reason not bathed/showered Patient/family refused bath/shower 11/15/2023 7:48 PM Maria Del Rosario Davis Bath Bathed/showered non- chg (CHG not indicated OR not required here) 11/16/2023 12:00 PM STACKER DRIVER Shelia Daily documented as of this encounter Mental Status * Question Answer Entry Date Author Orientation Oriented X4 (person, place, time, situation) 11/16/2023 8:00 AM STACKER DRIVER Stacey Flor RN Neuro ([facility]) [facility] 11/16/2023 8:00 AM STACKER DRIVER Stacey Flor RN * Question Answer Entry Date Author Neuro ([facility]) [facility] 11/15/2023 9:15 PM Jaskaran Iniguez RN * Short Blessed Test Question Answer Entry Date Author What year is it now? 0 11/14/2023 10:00 AM STACKER DRIVER Depaul Adamaris, OT What month is it now? 0 11/14/2023 10:00 AM STACKER DRIVER Jennifferauyuliana Adamaris, OT Without looking at the clock, tell me what time it is 3 11/14/2023 10:00 AM STACKER DRIVER Depaul Adamaris, OT Count aloud backwards from 20-1 0 11/14/2023 10:00 AM STACKER DRIVER Depaul Adamaris, OT Say the months of the year backwards in reverse order 4 11/14/2023 10:00 AM STACKER DRIVER Depaul Adamaris, OT Repeat the name and address I asked you to remember 6 11/14/2023 10:00 AM STACKER DRIVER Jennifferaul Adamaris, OT Repeat this name and address after me Jung Haynes [address] [place] [address] 11/14/2023 10:00 AM STACKER DRIVER Depaul Adamaris, OT Short Blessed Total Score 13 11/14/2023 10:00 AM STACKER DRIVER Depaul Adamaris, OT Short Blessed Comments SBT Score 13/28 indicates impairment consistent with dementia. Deficits noted in orientation, sequencing, and STM. 11/14/2023 10:00 AM STACKER DRIVER Adamaris Morris OT documented in this encounter Plan of Treatment Not on file documented as of this encounter Visit Diagnoses Not on filedocumented in this encounter Additional Health Concerns Infection Onset Date Last Indicated Resolved Time RSV, droplet 11/11/2023 11/13/2023 11/20/2023 3:05 AM STACKER DRIVER COVID: Suspected 01/05/2025 01/05/2025 01/05/2025 11:27 AM STACKER DRIVER documented as of this encounter Care Teams Seat Pack Inspector Relationship Specialty Start Date End Date Osiel Gann MD [address] [place] [address] PCP - General Family Medicine 08/23/[address] Wafer Substrate Tester 10/13/23 Mallory White, RN [address] [place] [address] [address] [place] [address] Industrial Hygiene Engineer 11/18/23 12/15/23 documented as of this encounter
--- OUTSIDE RECORDS SUMMARY | 2025-09-29 20:57 | XMS_ITS | Data Portability ---
Author Organization [facility] NIRAVNarend[facility] Address [address] [place] [address] Care Team Providers Care Core Carrier Name Role Phone CRESCENCIO PERAZAANDRÉS Primary Care Provider [phone] Assessment Encounter Date Assessment Date Assessment LastModified by Organization Details LastModified Time 02/18/2024 02/18/2024 Labs completed o n 11/16/2023 WBC 6.3, Hgb(12.1), Platelets 270, Sodium 135, Potassium 4.0, Chloride 99, Co2 28, BUN(37), Creatinine(1.47), Glucose 100, Calcium(8.2) Labs completed on 04/17/2023 Cholesterol 132, HDL(38), LDL 78, Trig 78 ECG done on 02/18/2024 shows sinus rhythm with PACs, poor wave, left axis deviation and lateral T wave abnormality, possible old inferior infarction. Compared to the previous EKG which was done on 05/11/2021 done on 05/11/2021 the T wave abnormality in anterior leads is improved PVCs are no longer seen and an isolated PAC is not seen. ASSESSMENT Congestive heart failure, [place] [employer] class 2 symptoms, improved since he had COVID back in November of 2020 Coronary artery disease with nonobstructive coronary artery disease on catheterization done on 04/05/2022 Dyspnea on exertion since he had a COVID infection December [address] scan done in July showing near resolution of his ground-glass opacities in his chest but he still has symptoms particularly with walking up steps or walking long distances giving him class 2 dyspnea improved since COVID in November 2020 but not back to baseline, likely secondary to his nonischemic cardiomyopathy Pure hypercholesterolemia on rosuvastatin 40 mg daily Zetia with LDL not at quite at ideal goal Cardiomyopathy, nonischemic, moderate of the on echocardiogram done on in the setting of a patient who had recently had COVID-19 infection however his ejection fraction has not improved remains 25-30% on his most recent echocardiogram done on 06/25/2022 with AICD placed on 02/14/2023 managed by [facility] EP with a dual-chamber device. Mild aortic stenosis with aortic valve area of 1.6 centimeters squared with a peak gradient 23 mm of mercury and a mean gradient of 13 mm of mercury on echocardiogram done on 03/13/2022 Diastolic dysfunction grade 3 Nonsustained ventricular tachycardia ranging between 3-7 beats with heart rates ranging between 96 and 250 beats per minute which were asymptomatic on Holter monitor done on 03/18/2022 Inappropriate sinus tachycardia with 21% times classified as tachycardia with heart rate greater than 100 beats minute on Holter monitor done on 03/13/2022 PVCs-6% PVC burden, asymptomatic on Holter monitor done on 03/13/2022 Mild biatrial enlargement on echocardiogram done on 03/13/2022 Hypertension - controlled Mild tricuspid regurgitation by echocardiogram done on 02/08/2021 Elevated liver transaminases Hyperkalemia the past so was not on ARB or lisinopril, now improved, furthermore could not afford Entresto at 1 time was eating bananas frequently now and a low-potassium diet now tolerating low-dose irbesartan Elevated TSH with borderline low free T4, borderline for hypothyroidism Plan-I recommend healthy diet which low in fat, low cholesterol low in sodium in low in potassium. I asked him to stay as active as he can with his chronic lower back pain. I will continue aspirin 81 mg daily, Zetia 10 mg daily, furosemide 40 mg daily, hydralazine 50 mg p.o. t.i.d., irbesartan 75 mg daily, metoprolol XL 12.5 mg daily and rosuvastatin 20 mg daily. He is to continue to follow with EP over at [facility] for management of his AICD. I will discontinue his isosorbide mononitrate as he is having erectile dysfunction and he would like to be on PDE 5 inhibitors. I told him to discontinue isosorbide mononitrate and give him sildenafil 50 mg which she can take 1 hour prior to intercourse. I told him to make sure he does not take the isosorbide mononitrat and I took his pills from him particularly if he takes the sildenafil as it can be life threatening. I will check another 2D echo with Doppler to reevaluate his LV function. I would like him to get a TSH with reflex. CBC, fasting lipid profile, complete metabolic profile soon. I asked him return in 3 months time for follow-up visit. I asked him return sooner if he has any cardiac issues or problem CARDIAC TESTING: ECHOCARDIOGRAM 11/15/2023 left-ventricular systolic function is severely reduced with an ejection fraction of 25 to 30% aortic valve sclerotic moderately without stenosis severe wall motion abnormality with akinesia in the mid to distal anteroseptal, anterior and anterolateral wall similar to prior study done on 06/25/2022, grade 1 diastolic dysfunction ECHOCARDIOGRAM 06/25/22. Limited 2D study. Moderate to Severe left ventricular dysfunction with an LVEF of 25-30%. The right ventricle is normal size. The right ventricular systolic function is normal.Mild to moderate left atrial enlargement, aortic sclerosis, Doppler not performed since 2D study There is mild mitral valve prolapse. Prolapse of the posterior mitral leaflet(s).Aortic valve sclerosis' moderate'.Pleural effusion noted. ECHOCARDIOGRAM 03/13/2022 showed moderately dilated left atrium, mildly dilated right atrium, moderate left ventricular systolic dysfunction with an ejection fraction of 35%, normal RV cavity size and function, mild valvular aortic stenosis with an aortic valve area of 1.6 centimeter squared and a peak gradient 23 mm of mercury and a mean gradient 13 mm of mercury with normal right heart pressures and diastolic dysfunction grade 3. ECHOCARDIOGRAM 02/08/2021 which showed the left ventricle was mildly dilated. There was mild LVH, moderate global hypokinesis of left ventricle with mid to distal septal wall hypokinesis with moderately reduced LV systolic dysfunction. Was a mildly dilated left atrium mild tricuspid regurgitation aortic valve is sclerotic with a peak gradient 15 mm of mercury with mild aortic stenosis. There was diastolic dysfunction seen. 24 HOUR HOLTER MONITOR He had a 24 hour Holter monitor on 03/18/2022 which showed underlying rhythm was sinus rhythm with heart rates ranging between 6731 beats minute with an average heart rate of 97 beats minute with 21% time classified as tachycardia with heart rate greater than 100 beats minute. There was 6% PVC burden, predominantly isolated with 6563 isolated PVCs, 471 couplets and 654 bigeminal cycles with 3-7 beat runs of ventricular tachycardia ranging between 96 and 250 beats per minute all of which were asymptomatic, it rare isolated PACs numbering 35, there were no symptoms during the Holter monitor no supraventricular tachycardia or significant pauses noted. CARDIAC CATHETERIZATION 04/05/2022 which showed mild nonobstructive coronary artery disease in the major epicardial vessels with moderate disease with 40% stenosis in a large 2nd diagonal branch, moderately dilated with severe global left ventricular systolic dysfunction with an ejection fraction of 25-30% consistent with nonischemic cardiomyopathy with an elevated LVEDP likely due to hypertensive heart disease, there was 1 to 2+ mitral regurgitation on left ventricular cineangiogram, elevated systemic arterial blood pressure with aortic pressure 171/82 mm mercury and left ventricular end-diastolic pressure was 26 mm of mercury. Not available 02/18/2024 17:35:19 01/14/2025 01/14/2025 Labs completed 05/06/2024 Cholesterol 109, Triglycerides 105, HDL 42, LDL 46 Labs completed on 11/16/2023 WBC 6.3, Hgb(12.1), Platelets 270, Sodium 135, Potassium 4.0, Chloride 99, Co2 28, BUN(37), Creatinine(1.47), Glucose 100, Calcium(8.2) Labs completed on 04/17/2023 Cholesterol 132, HDL(38), LDL 78, Trig 78 ECG done on 01/14/2025 shows sinus rhythm with a rate 79 beats per minute, frequent PVCs with 1 PVC couplet, left axis deviation, poor R-wave progression can not rule out old anterolateral infarction possible old inferior infarction and nonspecific T-wave abnormality in anterolateral leads, compared to the previous EKG done 02/18/2024, PVCs are now seen and PACs are no longer seen otherwise no other significant changes ASSESSMENT Congestive heart failure, [place] heart [employer] class 2 symptoms, improved since he had COVID back in November of 2020 Coronary artery disease with nonobstructive coronary artery disease on catheterization done on 04/05/2022 Dyspnea on exertion since he had a COVID infection December [address] scan done in July showing near resolution of his ground-glass opacities in his chest but he still has symptoms particularly with walking up steps or walking long distances giving him class 2 dyspnea improved since COVID in November 2020 but not back to baseline, likely secondary to his nonischemic cardiomyopathy Pure hypercholesterolemia on rosuvastatin 40 mg daily Zetia with LDL not at quite at ideal goal Cardiomyopathy, nonischemic, moderate of the on echocardiogram done on in the setting of a patient who had recently had COVID-19 infection however his ejection fraction has not improved remains 25-30% on his most recent echocardiogram done on 06/25/2022 with AICD placed on 02/14/2023 managed by [facility] with a dual-chamber device. Mild aortic stenosis with aortic valve area of 1.6 centimeters squared with a peak gradient 23 mm of mercury and a mean gradient of 13 mm of mercury on echocardiogram done on 03/13/2022 Diastolic dysfunction grade 3 Nonsustained ventricular tachycardia ranging between 3-7 beats with heart rates ranging between 96 and 250 beats per minute which were asymptomatic on Holter monitor done on 03/18/2022 Inappropriate sinus tachycardia with 21% times classified as tachycardia with heart rate greater than 100 beats minute on Holter monitor done on 03/13/2022 PVCs-6% PVC burden, asymptomatic on Holter monitor done on 03/13/2022 Mild biatrial enlargement on echocardiogram done on 03/13/2022 Hypertension - controlled Mild tricuspid regurgitation by echocardiogram done on 02/08/2021 Elevated liver transaminases Hyperkalemia the past so was not on ARB or lisinopril, now improved, furthermore could not afford Entresto at 1 time was eating bananas frequently now and a low-potassium diet now tolerating low-dose irbesartan Elevated TSH with borderline low free T4, borderline for hypothyroidism Plan-I recommend healthy diet which low in fat, low cholesterol low in sodium in low in potassium. I will discontinue the isosorbide mononitrate as he has some ED and we are going to treat him with sildenafil so I taking his bottle of isosorbide mononitrate and we will dispose of it and I have had my nurse call and stop the isosorbide mononitrate. I will send in a prescription for sildenafil 50 mg that he can take 1 hour prior to intercourse to see if this helps with his erectile dysfunction. I asked him to continue his aspirin 81 mg daily, Zetia 10 mg daily, furosemide 40 mg daily, hydralazine 50 mg p.o. t.i.d., irbesartan 75 mg daily, metoprolol XL 12.5 mg daily and rosuvastatin 20 mg daily. He is to continue to follow with EP over at [facility] for management of his AICD. Once again I reminded him not to take the isosorbide mononitrate as I am going to give him p.r.n. sildenafil and I told him there can be a life-threatening reaction if he takes the isosorbide mononitrate so he has to completely discontinue the isosorbide mononitrate. I will have him return in 3 months time and get a fasting lipid profile, complete metabolic profile CBC prior to his follow-up visit. I will also have him get a TSH with reflex and obtain a 2D echo Doppler prior to his follow-up visit in 3 months' time to re-evaluate his LV function in his aortic stenosis. I have asked him to return in 3 months' time and return sooner if he has any cardiac issues or problems. CARDIAC TESTING: ECHOCARDIOGRAM 03/10/2024 Complete two dimensional color flow and doppler transthoracic echocardiogram. Left ventricular chamber dimension is normal. Left ventricular systolic function is mildly reduced estimated at 40-45%. The apex appears to be severely hypokinetic. Definity was not administered cannot rule out other regional wall motion abnormalities. The left ventricular diastolic function is grade 1 diastolic dysfunction. Global longitudinal strain is abnormal at 11%. Right ventricular systolic function is normal. Left atrial chamber dimension is moderately enlarged. There is moderate aortic valve calcification. There is mild aortic valve stenosis. Normal inferior vena cave with >50% collapse upon inspiration consistent with normal right atrial pressure. ECHOCARDIOGRAM 11/15/2023 left-ventricular systolic function is severely reduced with an ejection fraction of 25 to 30% aortic valve sclerotic moderately without stenosis severe wall motion abnormality with akinesia in the mid to distal anteroseptal, anterior and anterolateral wall similar to prior study done on 06/25/2022, grade 1 diastolic dysfunction ECHOCARDIOGRAM 06/25/22. Limited 2D study. Moderate to Severe left ventricular dysfunction with an LVEF of 25-30%. The right ventricle is normal size. The right ventricular systolic function is normal.Mild to moderate left atrial enlargement, aortic sclerosis, Doppler not performed since 2D study There is mild mitral valve prolapse. Prolapse of the posterior mitral leaflet(s).Aortic valve sclerosis' moderate'.Pleural effusion noted. 24 HOUR HOLTER MONITOR He had a 24 hour Holter monitor on 03/18/2022 which showed underlying rhythm was sinus rhythm with heart rates ranging between 6731 beats minute with an average heart rate of 97 beats minute with 21% time classified as tachycardia with heart rate greater than 100 beats minute. There was 6% PVC burden, predominantly isolated with 6563 isolated PVCs, 471 couplets and 654 bigeminal cycles with 3-7 beat runs of ventricular tachycardia ranging between 96 and 250 beats per minute all of which were asymptomatic, it rare isolated PACs numbering 35, there were no symptoms during the Holter monitor no supraventricular tachycardia or significant pauses noted. CARDIAC CATHETERIZATION 04/05/2022 which showed mild nonobstructive coronary artery disease in the major epicardial vessels with moderate disease with 40% stenosis in a large 2nd diagonal branch, moderately dilated with severe global left ventricular systolic dysfunction with an ejection fraction of 25-30% consistent with nonischemic cardiomyopathy with an elevated LVEDP likely due to hypertensive heart disease, there was 1 to 2+ mitral regurgitation on left ventricular cineangiogram, elevated systemic arterial blood pressure with aortic pressure 171/82 mm mercury and left ventricular end-diastolic pressure was 26 mm of mercury. Not available 01/14/2025 12:51:55 08/23/2025 08/23/2025 LABS 04/19/2025 S odium 142, Potassium 5.3, Chloride 106, Co2 28, BUN 21, Creatinine 1.54, Glucose 104, Calcium 9.1, Bilirubin 0.4, Protein 6.3, Albumin 3.9, Alk phos 92, AST 58, ALT 53, eGFR 49, TSH 4.82, Cholesterol 113, Triglycerides 158, HDL 45, LDL 41, WBC 4.54, Hgb 11.8, Plt 294 Labs completed 04/07/2025 Glucose 114, BUN 20, Creatinine 1.3, Sodium 139, Potassium 4, Chloride 109, Co2 26.3, Calcium 9.2, eGFR 60 Labs completed 05/06/2024 Cholesterol 109, Triglycerides 105, HDL 42, LDL 46 Labs completed on 11/16/2023 WBC 6.3, Hgb(12.1), Platelets 270, Sodium 135, Potassium 4.0, Chloride 99, Co2 28, BUN(37), Creatinine(1.47), Glucose 100, Calcium(8.2) Labs completed on 04/17/2023 Cholesterol 132, HDL(38), LDL 78, Trig 78 ECG done on 08/23/2025 shows sinus rhythm with frequent PVCs and 1 PVC couplet. Old anterior infarction, anterolateral T-wave abnormality. Compared to the previous EKG done 01/15/2025, criteria for inferior infarction is no longer seen. ASSESSMENT Congestive heart failure, [place] heart [employer] class 2 symptoms, improved since he had COVID back in November of 2020 Coronary artery disease with nonobstructive coronary artery disease on catheterization done on 04/05/2022 Dyspnea on exertion since he had a COVID infection December [address] scan done in July showing near resolution of his ground-glass opacities in his chest but he still has symptoms particularly with walking up steps or walking long distances giving him class 2 dyspnea improved since COVID in November 2020 but not back to baseline, likely secondary to his nonischemic cardiomyopathy Pure hypercholesterolemia on rosuvastatin 40 mg daily Zetia with LDL not at quite at ideal goal Cardiomyopathy, nonischemic, moderate of the on echocardiogram done on in the setting of a patient who had recently had COVID-19 infection however his ejection fraction has not improved completely with his most recent echocardiogram showing an ejection fraction of 30 to 35% on 05/10/2025 as it has been as low as 25 to 30% back in October of 2023 status post AICD placed on 02/14/2023 managed by [facility] with a dual-chamber device. Aortic stenosis, moderate with an aortic valve area of 1.36 cm2 with a peak gradient of 26 mm Hg and a mean gradient of 15 mm Hg on echocardiogram performed on 05/10/2025 centimeters squared with a peak gradient 23 mm of mercury and a mean gradient of 13 mm of mercury on echocardiogram done on 03/13/2022 Diastolic dysfunction grade 3 Nonsustained ventricular tachycardia ranging between 3-7 beats with heart rates ranging between 96 and 250 beats per minute which were asymptomatic on Holter monitor done on 03/18/2022 Inappropriate sinus tachycardia with 21% times classified as tachycardia with heart rate greater than 100 beats minute on Holter monitor done on 03/13/2022 PVCs-6% PVC burden, asymptomatic on Holter monitor done on 03/13/2022 Mild biatrial enlargement on echocardiogram done on 03/13/2022 Hypertension - suboptimally controlled Mild tricuspid regurgitation by echocardiogram done on 02/08/2021 Elevated liver transaminases Hyperkalemia the past so was not on ARB or lisinopril, now improved, furthermore could not afford Entresto at 1 time was eating bananas frequently now and a low-potassium diet now tolerating low-dose irbesartan Elevated TSH with borderline low free T4, borderline for hypothyroidism Plan-I recommend healthy diet which low in fat, low cholesterol low in sodium in low in potassium. Since he is having class 2 symptoms of heart failure. I will change his irbesartan over to Entresto 49/51 mg p.o. b.i.d.. Since her bath ARB as he will not have to wait 36 hours prior to the change but we will have to recheck his labs including his potassium as his potassium was a little borderline high some reluctant to put him on Entresto until I recheck his potassium so we will continue the irbesartan for now. We will consider later adding an SGLT2 inhibitor if he continues to have dyspnea. I recommend he continue on aspirin 81 mg daily, Zetia 10 mg daily, furosemide 40 mg daily, hydralazine 50 mg p.o. t.i.d., metoprolol XL 12.5 mg daily and rosuvastatin 20 mg daily. He is to continue to follow with EP over at [facility] for management of his AICD. I will get a complete metabolic profile, fasting lipid profile and a CBC PENNIE and if his potassium is not elevated then we will consider changing over the irbesartan to Entresto.. I will have her return in 3 months' time for re-evaluation. Asked him return sooner if he has any cardiac issues or problems. CARDIAC TESTING: ECHOCARDIOGRAM 05/10/2025 Mildly dilated left atrium. Mildly dilated left ventricle. Mild concentric left ventricular hypertrophy. Moderate to severely depressed left ventricular systolic function. LV ejection fraction visually is 30-35%. Left ventricular diastolic parameters are consistent with Grade 1 diastolic dysfunction. Total wall motion score is 1.41. There is hypokinesis of the basal to mid anteroseptal wall. There sis hypokinesis of the entire inferoseptal wall. There is hypokinesis of the apical cap. There is hypokinesis of the apical lateral wall. The remaining left ventricular segments demonstrate normal wall motion. Aortic cusps appear mildly calcified. Trace aortic valve regurgitation. Moderate aortic valve stenosis. The peak transaortic gradient is 26.3mmHg. The mean transaortic gradient is 15.32mmHg. The aortic valve area by the continuity equation is 1.36cm2. There is trace to mild tricuspid regurgitation. The estimated right ventricular systolic pressure is 20mmHg. Normal estimated pulmonary artery systolic pressure. The IVC was <2.1 cm and collapsibility >50%. The RA pressure is estimated to be 3mmHg. ECHOCARDIOGRAM 03/10/2024 Complete two dimensional color flow and doppler transthoracic echocardiogram. Left ventricular chamber dimension is normal. Left ventricular systolic function is mildly reduced estimated at 40-45%. The apex appears to be severely hypokinetic. Definity was not administered cannot rule out other regional wall motion abnormalities. The left ventricular diastolic function is grade 1 diastolic dysfunction. Global longitudinal strain is abnormal at 11%. Right ventricular systolic function is normal. Left atrial chamber dimension is moderately enlarged. There is moderate aortic valve calcification. There is mild aortic valve stenosis. Normal inferior vena cave with >50% collapse upon inspiration consistent with normal right atrial pressure. ECHOCARDIOGRAM 11/15/2023 left-ventricular systolic function is severely reduced with an ejection fraction of 25 to 30% aortic valve sclerotic moderately without stenosis severe wall motion abnormality with akinesia in the mid to distal anteroseptal, anterior and anterolateral wall similar to prior study done on 06/25/2022, grade 1 diastolic dysfunction 24 HOUR HOLTER MONITOR He had a 24 hour Holter monitor on 03/18/2022 which showed underlying rhythm was sinus rhythm with heart rates ranging between 6731 beats minute with an average heart rate of 97 beats minute with 21% time classified as tachycardia with heart rate greater than 100 beats minute. There was 6% PVC burden, predominantly isolated with 6563 isolated PVCs, 471 couplets and 654 bigeminal cycles with 3-7 beat runs of ventricular tachycardia ranging between 96 and 250 beats per minute all of which were asymptomatic, it rare isolated PACs numbering 35, there were no symptoms during the Holter monitor no supraventricular tachycardia or significant pauses noted. CARDIAC CATHETERIZATION 04/05/2022 which showed mild nonobstructive coronary artery disease in the major epicardial vessels with moderate disease with 40% stenosis in a large 2nd diagonal branch, moderately dilated with severe global left ventricular systolic dysfunction with an ejection fraction of 25-30% consistent with nonischemic cardiomyopathy with an elevated LVEDP likely due to hypertensive heart disease, there was 1 to 2+ mitral regurgitation on left ventricular cineangiogram, elevated systemic arterial blood pressure with aortic pressure 171/82 mm mercury and left ventricular end-diastolic pressure was 26 mm of mercury. Not available 08/23/2025 18:05:24 Plan of Treatment Reminders Order Date Submit Date Provider Last Modified By Organization Details Last Modified Time Details Appointments ANY 15 2025 02:15P Rolo Triana MD Not available Not available Not available Lab lipid panel, serum 2024 025 [facility], [address] [place] [address] [place], [address], 08/30/2025 11:41:23 CMP, serum or plasma 2024 025 [facility], [facility] [place], [address], 08/30/2025 11:41:24 CBC w/ auto diff 2024 025 [facility], [facility] [place], [address], 08/30/2025 11:41:24 lipid panel, serum [address] [place] [address] Outpatient Lab, [facility] [place], [address], 04/21/2025 07:52:56 TSH, serum, reflex free T4 2024 025 [facility], [facility] [place], [address], 05/05/2025 08:09:38 CMP, serum or plasma [address] [place] [address] Outpatient Lab, [address] [place] [address] [place], [address], 04/21/2025 07:52:56 CBC w/ auto diff 2024 025 [facility], [address] [facility], [place], [address], 04/21/2025 07:52:56 lipid panel, serum 2023 024 [facility], [address] [facility], [address], [place], [address], 05/06/2024 14:02:23 CMP, serum or plasma 2023 024 [facility], [address] [facility] [address], [address], [place], [address], 02/18/2024 17:36:44 TSH, ultra- sensit ema, serum 2023 024 [facility], [address] [facility], [address], [place], [address], 02/18/2024 17:36:44 CBC w/ auto diff 2023 024 [facility], [address] [facility], [address], [place], [address], 02/18/2024 17:36:43 Referral None record ed. Procedures None record ed. Surgeries None record ed. Imaging electr ocardi ogram 2024 025 [email or web address] Order, Internal Use Only DO Not Attach Compendium DO Not Attach Compendium, Do Not Delete/merge, [id number] 08/23/2025 18:05:27 US, echoca rdiomanuela am, transt shelbi c, suleiman te, w/ color flow 2024 025 [facility], [address], [address], [place], [address], 04/07/2025 11:15:05 electr ocardi ogram 2024 025 [facility] In-Office Order, Internal Use Only DO Not Attach Compendium DO Not Attach Compendium, Do Not Delete/merge, [id number] 01/17/2025 08:09:59 US, donna montez am, dionicio mario c, suleiman te, w/ color flow - please call august burgos to sherry teresa 2023 024 [facility], [address], [place], [address], 03/30/2024 10:14:38 Medication Orders silden afil 50 mg tablet 2024 025 [facility]armacy #[id number], [address], [place], [address], 08/23/2025 16:30:03 silden afil 50 mg tablet [address] [email or web address]/Pharmacy #[id number], [address] [place], [address], 08/23/2025 16:30:01 gabape ntin 300 mg capsul e [address] [facility]/Pharmacy #[id number], [address], [place], [address], 01/14/2025 12:09:59 verapa mil ER (SR) 180 mg tablet ,exten ded releas e 2017 019 [facility] #[id number], [address], [place], [place], [id number], 02/18/2024 16:04:14 buspir one 10 mg tablet 2017 018 [facility]/Pharmacy #[id number], [address], [place], [address], 02/18/2024 16:04:35 buspir one 10 mg tablet 2017 018 [facility]/Pharmacy #[id number], [address], [place], [address], 02/18/2024 16:04:35 Patient TargetsNo targets recorded. Patient Instructions Encounter Date Encounter Id Patient Instructions Last Modified By Organization Details Last Modified Time 09/24/2018 [id number] f/u in 1 month p t to do labs nsuthan Not available 09/24/2018 11:50:09 10/26/2018 [id number] f/u in 2 month nsuthan Not available 10/26/2018 12:10:31 01/14/2025 [id number] A healthy lifestyle: care instructions [facility] Not available 01/14/2025 12:55:45 08/23/2025 [id number] A healthy lifestyle: care instructions [facility] Not available 08/23/2025 16:32:03 Reason for Referral None Reported. Results Created Date Observation Date Name Description Value Unit Range Abnormal Flag Note LastModifiedBy Organization Detail LastModifiedTime 09/24/20 18 09/25/2018 CMP, serum or plasm a glucose 86 mg/dL 65-99 Not Available [facility] ([facility]) [address] [place], [address], 09/25/2018 20:10:19 09/24/20 18 09/25/2018 CMP, serum or plasm a BUN 19 mg/dL 8-27 Not Available [facility] ([facility]) [address] [place], [address], 09/25/2018 20:10:19 09/24/20 18 09/25/2018 CMP, serum or plasm a creatinine 1.02 mg/dL 0.76-1 .27 Not Available [facility] ([facility]) [address] [place], [address], 09/25/2018 20:10:19 09/24/20 18 09/25/2018 CMP, serum or plasm a eGFR if nonafricn AM 78 mL/mi n/1.7 3 >59 Not Available [facility] ([facility]) [address] [place], [address], 09/25/2018 20:10:19 09/24/20 18 09/25/2018 CMP, serum or plasm a eGFR if africn AM 91 mL/mi n/1.7 3 >59 Not Available [facility] ([facility]) [address] [facility] [place], [address], 09/25/2018 20:10:19 09/24/20 18 09/25/2018 CMP, serum or plasm a BUN/creatini ne ratio 19 10-24 Not Available [facility] ([facility]) [address] [facility] [place], [address], 09/25/2018 20:10:19 09/24/20 18 09/25/2018 CMP, serum or plasm a sodium 142 mmol/ L 134-14 4 Not Available [facility] ([facility]) [address] [place], [address], 09/25/2018 20:10:19 09/24/20 18 09/25/2018 CMP, serum or plasm a potassium 5.1 mmol/ L 3.5-5. 2 Not Available [facility] ([facility]) [address] [facility] [place], [address], 09/25/2018 20:10:19 09/24/20 18 09/25/2018 CMP, serum or plasm a chloride 102 mmol/ L 96-106 Not Available [facility] ([facility]) [address] [place], [address], 09/25/2018 20:10:19 09/24/20 18 09/25/2018 CMP, serum or plasm a carbon dioxide, total 25 mmol/ L 20-29 Not Available [facility] ([facility]) [address] [place], [address], 09/25/2018 20:10:19 09/24/20 18 09/25/2018 CMP, serum or plasm a calcium 9.6 mg/dL 8.6-10 .2 Not Available [facility] ([facility]) [address] [facility] [place], [address], 09/25/2018 20:10:19 09/24/20 18 09/25/2018 CMP, serum or plasm a protein, total 6.9 g/dL 6.0-8. 5 Not Available [facility] ([facility]) [address] [facility] [place], [address], 09/25/2018 20:10:19 09/24/20 18 09/25/2018 CMP, serum or plasm a albumin 4.5 g/dL 3.6-4. 8 Not Available [facility] ([facility]) [address] [facility] [place], [address], 09/25/2018 20:10:19 09/24/20 18 09/25/2018 CMP, serum or plasm a globulin, total 2.4 g/dL 1.5-4. 5 Not Available [facility] ([facility]) [address] [facility], [place], [address], 09/25/2018 20:10:19 09/24/20 18 09/25/2018 CMP, serum or plasm a A/G ratio 1.9 1.2-2. 2 Not Available [facility] ([facility]) [address] [facility] [place], [address], 09/25/2018 20:10:19 09/24/20 18 09/25/2018 CMP, serum or plasm a bilirubin, total 0.5 mg/dL 0.0-1. 2 Not Available [facility] ([facility]) [address] [facility] [place], [address], 09/25/2018 20:10:19 09/24/20 18 09/25/2018 CMP, serum or plasm a alkaline phosphatase 74 IU/L 39-117 Not Available [facility]) [address] [facility] [place], [address], 09/25/2018 20:10:19 09/24/20 18 09/25/2018 CMP, serum or plasm a AST (SGOT) 22 IU/L 0-40 Not Available [facility] ([facility]) [address] [facility], [place], [address], 09/25/2018 20:10:19 09/24/20 18 09/25/2018 CMP, serum or plasm a ALT (SGPT) 30 IU/L 0-44 Not Available [facility] ([facility]) [address] [facility], [place], [address], 09/25/2018 20:10:19 09/24/20 18 09/24/2018 drug scree n, urine please note: Commen t This assay provi carlos a preli minar y uncon firme d jono tical test resul t that may be suita ble for clini olga manag ement of patie nts in certa in situa tions . Drug- test resul ts shoul d be inter prete d in the aleksandr xt of clini olga infor matio n. Patie nt metab olic varia bles, speci fic drug chemi stry, and speci men clay cteri stics can affec t test outco me. Techn ical consu ltati on is avail able if a test resul t is incon siste nt with an expec indra outco me. ([email or web address] or call toll- free [phone]) Not Available [facility] ([facility]) [address] [facility], [place], [address], 09/25/2018 20:10:19 09/24/20 18 09/25/2018 drug scree n, urine amphetamines screen, urine Negati ve NG/mL cutoff =1000 Not Available [facility] ([facility]) [address] [facility], [place], [address], 09/25/2018 20:10:19 09/24/20 18 09/25/2018 drug scree n, urine barbiturates screen, urine Negati ve NG/mL cutoff =200 Not Available [facility] ([facility]) [address] [place], [address], 09/25/2018 20:10:19 09/24/20 18 09/25/2018 drug scree n, urine benzodiazepi roseann screen, urine Positi ve NG/mL cutoff =200 abnormal Not Available [facility] ([facility]) [address] [place] [address], [address], 09/25/2018 20:10:19 09/24/20 18 09/25/2018 drug scree n, urine cannabinoid screen, urine Negati ve NG/mL cutoff =20 Not Available [facility] ([facility]) [address] [place] [address], [address], 09/25/2018 20:10:19 09/24/20 18 09/25/2018 drug scree n, urine cocaine (metab.) screen, urine Negati ve NG/mL cutoff =300 Not Available [facility] ([facility]) [address] [place] [address], [address], 09/25/2018 20:10:19 09/24/20 18 09/25/2018 drug scree n, urine opiate screen, urine Positi ve NG/mL cutoff =300 abnormal Opiat e test inclu carlos Codei ne, Morph ine, [place] morph one, [place] codon e. Not Available [facility] ([facility]) [address] [place] [address], [address], 09/25/2018 20:10:19 09/24/20 18 09/25/2018 drug scree n, urine oxycodone/ox ymorphone, urine Negati ve NG/mL cutoff =100 Test inclu carlos Oxyco done and Oxymo rphon e Not Available [facility] ([facility]) [address] [place] [address], [address], 09/25/2018 20:10:19 09/24/20 18 09/25/2018 drug scree n, urine phencyclidin e screen, urine Negati ve NG/mL cutoff =25 Not Available [facility] ([facility]) [address] [place], [address], 09/25/2018 20:10:19 09/24/20 18 09/25/2018 drug scree n, urine methadone screen, urine Negati ve NG/mL cutoff =300 Not Available [facility] ([facility]) [address] [place], [address], 09/25/2018 20:10:19 09/24/20 18 09/25/2018 drug scree n, urine propoxyphene screen, urine Negati ve NG/mL cutoff =300 Not Available [facility] ([facility]) [address] [place], [address], 09/25/2018 20:10:19 09/24/20 18 09/25/2018 drug scree n, urine meperidine screen, urine Negati ve NG/mL cutoff =200 This test was devel oped and its perfo rmanc e clay cteri stics deter mined by [employer]. It has not been clear ed or appro uche by the Food and Drug Admin istra tion. Not Available [facility] ([facility]) [address] [facility], [place], [address], 09/25/2018 20:10:19 09/24/20 18 09/25/2018 drug scree n, urine fentanyl, urine Negati ve pg/mL cutoff =2000 Test inclu carlos Fenta nyl and Norfe ntany l This test was devel oped and its perfo rmanc e clay cteri stics deter mined by [facility]. It has not been clear ed or appro uche by the Food and Drug Admin istra tion. Not Available [facility] ([facility]) [address] [place], [address], 09/25/2018 20:10:19 09/24/20 18 09/25/2018 drug scree n, urine tramadol screen, urine Negati ve NG/mL cutoff =200 Not Available [facility] ([facility]) [address] [facility] [place], [address], 09/25/2018 20:10:19 09/24/20 18 09/25/2018 drug scree n, urine creatinine, urine 115.9 mg/dL 20.0-3 00.0 Not Available [facility] ([facility]) [address] [facility], [place], [address], 09/25/2018 20:10:19 09/24/20 18 09/25/2018 drug scree n, urine pH, urine 5.3 4.5-8. 9 Not Available [facility] ([facility]) [address] [facility] [place], [address], 09/25/2018 20:10:19 09/24/20 18 09/24/2018 CBC WBC 5.0 x10e3 /uL 3.4-10 .8 Not Available [facility] ([facility]) [address] [place], [address], 09/25/2018 20:10:20 09/24/20 18 09/24/2018 CBC RBC 4.29 x10e6 /uL 4.14-5 .80 Not Available [facility] ([facility]) [address] [facility], [place], [address], 09/25/2018 20:10:20 09/24/20 18 09/24/2018 CBC hemoglobin 13.4 g/dL 13.0-1 7.7 Not Available [facility] ([facility]) [address] [place], [address], 09/25/2018 20:10:20 09/24/20 18 09/24/2018 CBC hematocrit 39.9 % 37.5-5 1.0 Not Available [facility] ([facility]) [address] [place], [address], 09/25/2018 20:10:20 09/24/20 18 09/24/2018 CBC MCV 93 fL 79-97 Not Available [facility] ([facility]) [address] [place], [address], 09/25/2018 20:10:20 09/24/20 18 09/24/2018 CBC MCH 31.2 pg 26.6-3 3.0 Not Available [facility] ([facility]) [address] [place], [address], 09/25/2018 20:10:20 09/24/20 18 09/24/2018 CBC MCHC 33.6 g/dL 31.5-3 5.7 Not Available [facility] ([facility]) [address] [place], [address], 09/25/2018 20:10:20 09/24/20 18 09/24/2018 CBC RDW 13.8 % 12.3-1 5.4 Not Available [facility] ([facility]) [address] [place], [address], 09/25/2018 20:10:20 09/24/20 18 09/24/2018 CBC NRBC ANKLE PATCH MOLDER Not Available [facility] ([facility]) [address] [place], [address], 09/25/2018 20:10:20 09/24/20 18 09/25/2018 lipid panel , serum cholesterol, total 202 mg/dL 100-19 9 above high normal Not Available [facility] ([facility]) [address] [place], [address], 09/25/2018 20:10:20 09/24/20 18 09/25/2018 lipid panel , serum triglyceride s 185 mg/dL 0-149 above high normal Not Available [facility] ([facility]) [address] [place], [address], 09/25/2018 20:10:20 09/24/20 18 09/25/2018 lipid panel , serum HDL cholesterol 44 mg/dL >39 Not Available [facility]) [address] [place], [address], 09/25/2018 20:10:20 09/24/20 18 09/25/2018 lipid panel , serum VLDL cholesterol olga 37 mg/dL 5-40 Not Available [facility]) [address] [place], [address], 09/25/2018 20:10:20 09/24/20 18 09/25/2018 lipid panel , serum LDL cholesterol calc 121 mg/dL 0-99 above high normal Not Available [facility] ([facility]) [address] [place], [address], 09/25/2018 20:10:20 09/24/20 18 09/25/2018 lipid panel , serum comment: ANKLE PATCH MOLDER Not Available [facility] ([facility]) [address] [place] [address], [address], 09/25/2018 20:10:20 09/24/20 18 09/25/2018 TSH, ultra -sens itive , serum TSH 8.350 uIU/m L 0.450- 4.500 above high normal Not Available [facility] ([facility]) [address] [place], [address], 09/25/2018 20:10:21 10/26/20 18 10/27/2018 fecal occul t blood , immun oassa y, stool occult blood, fecal, ia Positi ve negati ve abnormal Not Available [facility] ([facility]) [address] [place] [address], [address], 10/27/2018 16:19:02 04/07/20 25 04/07/2025 Basic metab olic 2000 panel - Serum or Plasm a glucose [mass/volume ] in serum or plasma 114 text: 70 - 99 mg/dL high Not Available Not Available 04/22/2025 03:25:00 04/07/20 25 04/07/2025 Basic metab olic 2000 panel - Serum or Plasm a urea nitrogen [mass/volume ] in serum or plasma 20 text: 7 - 18 mg/dL high Not Available Not Available 04/22/2025 03:25:00 04/07/2004/07/2025 Basic metab olic 1999 panel - Serum or Plasm a creatinine [mass/volume ] in serum or plasma 1.3 text: 0.7 - 1.3 mg/dL Not Available Not Available 04/22/2025 03:25:00 04/07/2004/07/2025 Basic metab olic 1999 panel - Serum or Plasm a sodium [moles/volum e] in serum or plasma 139 text: 136 - 145 mmol/L Not Available Not Available 04/22/2025 03:25:00 04/07/2004/07/2025 Basic metab olic 1999 panel - Serum or Plasm a potassium [moles/volum e] in serum or plasma 4 text: 3.5 - 5.1 mmol/L Not Available Not Available 04/22/2025 03:25:00 04/07/2004/07/2025 Basic metab olic 1999 panel - Serum or Plasm a chloride [moles/volum e] in serum or plasma 109 text: 97 - 115 mmol/L Not Available Not Available 04/22/2025 03:25:00 04/07/2004/07/2025 Basic metab olic 1999 panel - Serum or Plasm a carbon dioxide, total [moles/volum e] in serum or plasma 26.3 text: 21 - 32 mmol/L Not Available Not Available 04/22/2025 03:25:00 04/07/2004/07/2025 Basic metab olic 1999 panel - Serum or Plasm a calcium [mass/volume ] in serum or plasma 9.2 text: 8.5 - 10.1 mg/dL Not Available Not Available 04/22/2025 03:25:00 04/07/2004/07/2025 Basic metab olic 1999 panel - Serum or Plasm a anion gap in serum or plasma by calculation 3.7 text: 2 - 10 mmol/L Not Available Not Available 04/22/2025 03:25:00 04/07/2004/07/2025 Basic metab olic 2000 panel - Serum or Plasm a urea nitrogen/cre atinine [mass ratio] in serum or plasma 15.4 low: 6high: 26 Not Available Not Available 04/22/2025 03:25:00 04/07/2004/07/2025 Basic metab olic 2000 panel - Serum or Plasm a glomerular filtration rate [volume rate/area] in serum, plasma or blood by creatinine-b ased formula (CKD-epi 2020)/1.73 sq M 60 text: >90 mL/min /1.73 M2 low NOTE: eGFR is not calcu lated for patie nts <18 years of age or gende r unkno wn. This is an estim ated GFR calcu latio n using the new CKD EPI creat inine equat ion witho ut race and so does not requi re a corre ction facto r for race. This estim ated GFR shoul d not be used for calcu latin g drug doses . Not Available Not Available 04/22/2025 03:25:00 04/07/2004/07/2025 Basic metab olic 2000 panel - Serum or Plasm a interpretati on and review of laboratory results Abnorm al Not Available Not Available 03:25:00 08/30/2008/30/2025 COMPL ETE BLOOD COUNT AUTO DIFF white blood count 4.3 x10e3 /uL 3.4-10 .8 normal Not Available [facility] (Lab) [address] [place], [address], 08/30/2025 19:50:56 08/30/20 25 08/30/2025 COMPL ETE BLOOD COUNT AUTO DIFF red blood count 3.92 x10e6 /uL 4.14-5 .80 low Not Available [facility] (Lab) [address] [facility], [place], [address], 08/30/2025 19:50:56 08/30/20 25 08/30/2025 COMPL ETE BLOOD COUNT AUTO DIFF hemoglobin 11.8 g/dL 13.0-1 7.7 low Not Available [facility] (Lab) [address] [place], [address], 08/30/2025 19:50:56 08/30/20 25 08/30/2025 COMPL ETE BLOOD COUNT AUTO DIFF hematocrit 36.3 % 37.5-5 1.0 low Not Available [facility] (Lab) [address], [place], [address], 08/30/2025 19:50:56 08/30/20 25 08/30/2025 COMPL ETE BLOOD COUNT AUTO DIFF mean corpuscular volume 93 fL 79-97 normal Not Available [facility] (Lab) [address], [place], [address], 08/30/2025 19:50:56 08/30/20 25 08/30/2025 COMPL ETE BLOOD COUNT AUTO DIFF mean corpuscular hemoglobin 30.1 pg 26.6-3 3.0 normal Not Available [facility] (Lab) [address], [place], [address], 08/30/2025 19:50:56 08/30/20 25 08/30/2025 COMPL ETE BLOOD COUNT AUTO DIFF mean corpuscular HGB conc 32.5 g/dL 31.5-3 5.7 normal Not Available [facility] (Lab) [address], [place], [address], 08/30/2025 19:50:56 08/30/20 25 08/30/2025 COMPL ETE BLOOD COUNT AUTO DIFF red cell distribution width 13.5 % 11.5-1 4.5 normal Not Available [facility] (Lab) [address], [place], [address], 08/30/2025 19:50:56 08/30/20 25 08/30/2025 COMPL ETE BLOOD COUNT AUTO DIFF platelet count 223 x10e3 /uL 150-45 0 normal Not Available [facility] (Lab) [address] [place], [address], 08/30/2025 19:50:56 08/30/20 25 08/30/2025 COMPL ETE BLOOD COUNT AUTO DIFF mean platelet volume 10.4 fL 8.9-12 .7 normal Not Available [facility] (Lab) [address] [place], [address], 08/30/2025 19:50:56 08/30/20 25 08/30/2025 COMPL ETE BLOOD COUNT AUTO DIFF immature granulocytes pct auto 0.2 % not estb. Not Available [facility] ([facility]) [address], [place], [address], 08/30/2025 19:50:56 08/30/20 25 08/30/2025 COMPL ETE BLOOD COUNT AUTO DIFF neutrophils percent auto 47 % not estb. Not Available [facility] ([facility]) [address] [facility], [place], [address], 08/30/2025 19:50:56 08/30/20 25 08/30/2025 COMPL ETE BLOOD COUNT AUTO DIFF lymphocytes percent auto 30 % not estb. Not Available [facility] ([facility]) [address] [facility], [place], [address], 08/30/2025 19:50:56 08/30/20 25 08/30/2025 COMPL ETE BLOOD COUNT AUTO DIFF monocytes percent auto 10 % not estb. Not Available [facility] ([facility]) [address] [facility], [place], [address], 08/30/2025 19:50:56 08/30/20 25 08/30/2025 COMPL ETE BLOOD COUNT AUTO DIFF eosinophils percent auto 12 % not estb. Not Available [facility] ([facility]) [address] [facility], [place], [address], 08/30/2025 19:50:56 08/30/20 25 08/30/2025 COMPL ETE BLOOD COUNT AUTO DIFF basophils percent auto 2 % not estb. Not Available [facility] (Lab) [address] [place], [address], 08/30/2025 19:50:56 08/30/20 25 08/30/2025 COMPL ETE BLOOD COUNT AUTO DIFF neutrophils absolute auto 2.0 x10e3 /uL 1.4-7. 0 normal Not Available [facility] ([facility]) [address] [facility], [place], [address], 08/30/2025 19:50:56 08/30/20 25 08/30/2025 COMPL ETE BLOOD COUNT AUTO DIFF immature granulocytes abs auto 0.0 x10e3 /uL 0.0-0. 1 normal Not Available [facility] (Lab) [address] [facility], [place], [address], 08/30/2025 19:50:56 08/30/20 25 08/30/2025 COMPL ETE BLOOD COUNT AUTO DIFF lymphocytes absolute auto 1.3 x10e3 /uL 0.7-3. 1 normal Not Available [facility] (Lab) [address] [place], [address], 08/30/2025 19:50:56 08/30/20 25 08/30/2025 COMPL ETE BLOOD COUNT AUTO DIFF monocytes absolute auto 0.4 x10e3 /uL 0.1-0. 9 normal Not Available [facility] (Lab) [address] [place], [address], 08/30/2025 19:50:56 08/30/20 25 08/30/2025 COMPL ETE BLOOD COUNT AUTO DIFF eosinophils absolute auto 0.5 x10e3 /uL 0.0-0. 4 high Not Available [facility] (Lab) [address] [facility], [place], [address], 08/30/2025 19:50:56 08/30/20 25 08/30/2025 COMPL ETE BLOOD COUNT AUTO DIFF basophils absolute auto 0.1 x10e3 /uL 0.0-0. 2 normal Not Available [facility] (Lab) [address] [place], [address], 08/30/2025 19:50:56 08/30/20 25 08/30/2025 COMPL ETE BLOOD COUNT AUTO DIFF nucleated red blood cells auto 0 % 0-0 normal Not Available [facility] ([facility]) [address] [place], [address], 08/30/2025 19:50:56 08/30/20 25 08/30/2025 COMPR EHENS EMA METAB OLIC PANEL sodium 144 mmol/ L 134-14 4 normal Not Available [facility] [address] [place], [address], 08/30/2025 20:58:21 08/30/20 25 08/30/2025 COMPR EHENS EMA METAB OLIC PANEL potassium 4.7 mmol/ L 3.5-5. 9 normal Not Available [facility] ([facility]) [address] [place], [address], 08/30/2025 20:58:21 08/30/20 25 08/30/2025 COMPR EHENS EMA METAB OLIC PANEL chloride 107 mmol/ L 96-106 high Not Available [facility] (Lab) [address] [place], [address], 08/30/2025 20:58:21 08/30/20 25 08/30/2025 COMPR EHENS EMA METAB OLIC PANEL carbon dioxide 26 mmol/ L 20-29 normal Not Available [facility] (Lab) [address] [place], [address], 08/30/2025 20:58:21 08/30/20 25 08/30/2025 COMPR EHENS EMA METAB OLIC PANEL anion gap 15.0 mmol/ L Not Available [facility] ([facility]) [address] [place], [address], 08/30/2025 20:58:21 08/30/20 25 08/30/2025 COMPR EHENS EMA METAB OLIC PANEL blood urea nitrogen 25 mg/dL 8-27 normal Not Available [facility] ([facility]) [address] [place], [address], 08/30/2025 20:58:21 08/30/20 25 08/30/2025 COMPR EHENS EMA METAB OLIC PANEL creatinine 1.37 mg/dL 0.76-1 .27 high Not Available [facility] ([facility]) [address] [place], [address], 08/30/2025 20:58:21 08/30/20 25 08/30/2025 COMPR EHENS EMA METAB OLIC PANEL eGFR 56 mL/mi n/1 >=60 low Not Available [facility] (Lab) [address] [place], [address], 08/30/2025 20:58:21 08/30/20 25 08/30/2025 COMPR EHENS EMA METAB OLIC PANEL BUN creatinine ratio 18 10-24 normal Not Available [facility] [address] [place], [place], [address], 08/30/2025 20:58:21 08/30/20 25 08/30/2025 COMPR EHENS EMA METAB OLIC PANEL glucose 101 mg/dL 70-99 high Not Available [facility] (Lab) [address], [place], [address], 08/30/2025 20:58:21 08/30/20 25 08/30/2025 COMPR EHENS EMA METAB OLIC PANEL osmolality calculated 291 280-30 1 normal Not Available [facility] (Lab) [address] [place], [address], 08/30/2025 20:58:21 08/30/20 25 08/30/2025 COMPR EHENS EMA METAB OLIC PANEL calcium 8.7 mg/dL 8.6-10 .2 normal Not Available [facility] (Lab) [address] [place], [address], 08/30/2025 20:58:21 08/30/20 25 08/30/2025 COMPR EHENS EMA METAB OLIC PANEL bilirubin total 0.6 mg/dL 0.0-1. 2 normal Not Available [facility] (Lab) [address] [place], [address], 08/30/2025 20:58:21 08/30/20 25 08/30/2025 COMPR EHENS EMA METAB OLIC PANEL AST aspartate aminotransfe rase 42 U/L 0-40 high Not Available [facility] ([facility] [address], [place], [address], 08/30/2025 20:58:21 08/30/20 25 08/30/2025 COMPR EHENS EMA METAB OLIC PANEL ALT (alanine aminotransfe rase) 53 IU/L 0-44 high Not Available [facility] (Lab) [address], [place], [address], 08/30/2025 20:58:21 08/30/20 25 08/30/2025 COMPR EHENS EMA METAB OLIC PANEL total protein 5.9 g/dL 6.0-8. 5 low Not Available [facility] (Lab) [address], [place], [address], 08/30/2025 20:58:21 08/30/20 25 08/30/2025 COMPR EHENS EMA METAB OLIC PANEL albumin level 3.9 g/dL 3.9-4. 9 normal Not Available [facility] (Lab) [address], [place], [address], 08/30/2025 20:58:21 08/30/20 25 08/30/2025 COMPR EHENS EMA METAB OLIC PANEL globulin 2.0 g/dL 1.5-4. 5 normal Not Available [facility] (Lab) [address], [place], [address], 08/30/2025 20:58:21 08/30/20 25 08/30/2025 COMPR EHENS EMA METAB OLIC PANEL albumin globulin ratio 2.0 1.2-2. 2 normal Not Available [facility] (Lab) [address] [place], [address], 08/30/2025 20:58:21 08/30/20 25 08/30/2025 COMPR EHENS EMA METAB OLIC PANEL alkaline phosphatase 79 IU/L 44-121 normal Not Available [facility] (Lab) [address] [place], [address], 08/30/2025 20:58:21 08/30/20 25 08/30/2025 COMPR EHENS EMA METAB OLIC PANEL hemolysis 6 0-19 Not Available [facility] (Lab) [address] [place], [address], 08/30/2025 20:58:21 08/30/20 25 08/30/2025 COMPR EHENS EMA METAB OLIC PANEL icterus 1 0.5-4. 9 Not Available [facility] (Lab) [address] [facility], [place], [address], 08/30/2025 20:58:21 08/30/20 25 08/30/2025 COMPR EHENS EMA METAB OLIC PANEL lipemia 5 0-99 Not Available [facility] (Lab) [address] [facility], [place], [address], 08/30/2025 20:58:21 08/30/20 25 08/30/2025 LIPID PANEL triglyceride s 45 mg/dL 0-149 normal Not Available [facility] (Lab) [address] [place], [address], 08/30/2025 20:58:22 08/30/20 25 08/30/2025 LIPID PANEL cholesterol 108 mg/dL 100-19 9 normal Not Available [facility] (Lab) [address] [facility], [place], [address], 08/30/2025 20:58:22 08/30/20 25 08/30/2025 LIPID PANEL LDL cholesterol 51 mg/dL 0-99 normal Not Available [facility] ([facility]) [address] [place], [address], 08/30/2025 20:58:22 08/30/20 25 08/30/2025 LIPID PANEL VLDL cholesterol (calc) 9 mg/dL 5-40 normal Not Available [facility] (Lab) [address] [place], [address], 08/30/2025 20:58:22 08/30/20 25 08/30/2025 LIPID PANEL HDL cholesterol 46 mg/dL 40-999 normal Not Available [facility] (Lab) [address], [place], [address], 08/30/2025 20:58:22 08/30/20 25 08/30/2025 LIPID PANEL LDL HDL ratio 1.1 0-3.6 normal Not Available [facility] (Lab) [address], [place], [address], 08/30/2025 20:58:22 08/30/20 25 08/30/2025 LIPID PANEL chol HDL ratio 2.0 mg/dL 0-5.0 normal Not Available [facility] (Lab) [address], [place], [address], 08/30/2025 20:58:22 02/18/20 24 elect rocar diogr am No observ ation record ed. [email or web address] In-Office Order Internal Use Only DO Not Attach Compendium DO Not Attach Compendium, Do Not Delete/merge, [id number] 02/18/2024 17:41:42 03/30/20 24 03/10/2024 US, echoc ardio gram, trans thora cic, compl ete, w/ color flow No observ ation record ed. [facility] [address], [place], [address], 03/30/2024 11:14:28 01/14/20 25 01/14/2025 elect rocar diogr am No observ ation record ed. OLESYA In-Office Order Internal Use Only DO Not Attach Compendium DO Not Attach Compendium, Do Not Delete/merge, [id number] 01/14/2025 15:37:40 01/14/20 25 elect rocar diogr am No observ ation record ed. [email or web address] Not Available 01/14 15:36:18 05/16/20 25 05/10/2025 US, echoc ardio gram, trans thora cic, compl ete, w/ color flow No observ ation record ed. [facility] [address], [place], [address], 05/17/2025 07:39:58 05/18/2005/10/2025 US, echoc ardio gram, trans thora cic, compl ete, w/ color flow No observ ation record ed. [facility] Scheduling [address], [place], [address], 05/18/2025 15:52:11 05/18/20 25 05/10/2025 US, echoc ardio gram, trans thora cic, compl ete, w/ color flow No observ ation record ed. [facility] Scheduling [address], [place], [address], 05/18/2025 15:52:11 05/18/20 25 05/10/2025 US, echoc ardio gram, trans thora cic, compl ete, w/ color flow No observ ation record ed. [facility] Scheduling [address], [place], [address], 05/18/2025 16:05:30 08/23/2008/23/2025 elect rocar diogr am No observ ation record ed. JAMIESON In-Office Order Internal Use Only DO Not Attach Compendium DO Not Attach Compendium, Do Not Delete/merge, [id number] 08/24/2025 09:54:29 08/23/20 elect rocar diogr am No observ ation record ed. [email or web address] Not Available 08/24 09:54:29 Result Notes None recorded. Problems Name Problem SNOMED Code Status Onset Date Resolution Date Notes Provider Name and Address Organization Details Recorded Time Restless legs syndrome 65250680 Active 2015 Marilu Perez MD Attn: Dhara ferrara,[address] [facility], [place], [address], [place] [facility] 6 12:41:35 Cellulit is 901304000 Completed 201506/29/2018 Vickie Peraza MD Attn: Dhara ferrara,[address] [facility], [place], [address], [place] [facility] 8 10:45:27 Pain of multiple joints 78799769 Active 2015 Marilu Perez MD Attn: Dhara ferrara,[address] [facility], [place], [address], [place] [facility] 6 12:44:02 Exposure to toxin Completed 201506/29/2018 Vickie Peraza MD Attn: Dhara ferrara,[address] [facility], [place], [address], [place] [facility] 8 10:44:37 Anxiety disorder 220544546 Completed 201506/29/2018 Vickie Peraza MD Attn: Dhara ferrara,[address] [facility], [place], [address], [facility] - [facility] 8 10:45:46 On examinat ion - cardiac murmur Active 2015 Marilu Perez MD Attn: Dhara ferrara,[address] [facility], [place], [address], [place] [facility] 6 13:04:37 History of hypothyr oidism 333815303 Completed 201506/29/2018 Vickie Peraza MD Attn: Dhara ferrara,[address] [facility], [place], [address], [place] [facility] 8 10:45:58 Medicati on monitori ng Completed 201606/29/2018 Vickie Peraza MD Attn: Dhara ferrara,[address] [facility], [place], [address], [place] [facility] 8 10:44:33 Mixed anxiety and depressi ve disorder 647770286 Active 2017 Vickie Peraza MD Attn: Dhara ferrara,[address] [facility], [place], [address], [place] [facility] 8 10:45:21 Injury of back of neck 512180135 Active 2017 work injury -s/p sx 2004 Vickie Peraza MD Attn: Lizbetvicente ferrara,[address] [place], [address], [place] [facility] 8 10:57:17 Lower back injury 134403921 Active 2017 work injury 2005-s/p sx Vickie Peraza MD Attn: Dhara alem,[address] [facility], [place], [address], [place] [facility] 8 10:57:44 Benign hyperten sarah 78350216 Active 2017 Vickie Peraza MD Attn: Dhara alem,[address] [place], [address], [place] [facility] 8 11:16:11 Hypothyr oidism 09999247 Active 2017 Vickie Peraza MD Attn: Dhara alem,[address] [facility], [place], [address], [place] [facility] 8 13:38:03 Fecal occult blood: positive Active 2017 referred to GI Vickie Peraza MD Attn: Dhara alem,[address] [facility], [place], [address], [place] [facility] 8 10:12:05 Pure hypercho lesterol emia 847408853 Active 2023 Don Triana MD Attn: Dhara alem,[address] [place], [address], [place] [facility] 4 17:32:13 Nonische shay congesti ve cardiomy opathy 91813476413 4 Active 2023 Don Triana MD Attn: Dhara alem,[address] [place], [address], [place] [facility] 4 17:32:14 Acute on chronic systolic heart failure 966333820 Active 2023 Don Triana MD Attn: Dhara alem,[address] [facility], [place], [place], [address] [place] [address] 2, [place] [facility] 4 17:32:15 Nonsusta ined monomorp hic ventricu lar tachycar blaise Active 2023 Don Triana MD Attn: Dhara ferrara,[address] [facility], [place], [place], [address] [place] [address] 2, [place] [facility] 4 17:32:16 Inapprop riate sinus tachycar blaise 969822135 Active 2023 Don Triana MD Attn: Dhara ferrara,[address] [facility], [place], [place], [address] [place] [address] 2, [place] - [facility] 4 17:32:17 Diastoli c dysfunct ion 8321647 Active 2023 Don Triana MD Attn: Dhara ferrara,[address] [facility], [place], [place], [address] [place] [address] 2, [place] [facility] 4 17:32:19 Ventricu lar prematur e complex 619297008 Active 2023 Don Triana MD Attn: Dhara ferrara,[address] [facility], [place], [place], [address] [place] [address] 2, [place] [facility] 4 17:32:21 Thyroid stimulat ing hormone level above referenc e range 861292049 Active 2023 Don Triana MD Attn: Dhara ferrara,[address] [facility], [place], [place], [address] [place] [address] 2, [place] [facility] 4 17:32:24 Erectile dysfunct ion 210727759 Active 2023 Don Triana MD Attn: Dhara ferrara,[address] [facility], [place], [place], [address] [place] [address] 2, [place] [facility] 4 17:32:26 Long-ter m current use of antiplat elet drug 73297412721 4101 Active 2024 Don Triana MD Attn: Dhara ferrara,[address] [facility], [place], [address], [facility] - SI 5 12:54:20 Aortic valve sclerosi s 31381349 Active 2024 Don Triana MD Attn: Dhara ferrara,[address], [place], [address], [facility] - SI 12:54:26 Problem Notes Documentation Provider Name and Address Organization Details Recorded Time Production Solderer Consult Note : [facility] [address], [facility] [address]ZKSSCWKHimanshu ALAMO (id #[id number], : 1955) [facility] [address] [place] [address] Encounter Summary - Progress Note Date Printed: 01/14/2025 Documents sent via fax will include the followingmessage: This fax may contain sensitive and confidential personal health information that is being sent for the sole use of the intended recipient. Unintended recipients are directed to securely destroy any materials received. You are hereby notified that the unauthorized disclosure or other unlawful use of this fax or any personal health information is prohibited. To the extent patient information contained in this fax is subject to 42 CFR Part 2, this regulation prohibits unauthorized disclosure of these records. If you received this fax in error, please visit [email or web address] to notify the sender and confirm that the information will be destroyed. If you do not have internet access, please call to notify the sender and confirm that the information will be destroyed. Thank you for your attention and cooperation. [ID:[id number]] Patient Himanshu Tovar (69yo, M) #[id number] 1955 Patient Demographics: Address [address] [place] [address] Work Phone Encounter Notes: Encounter Reason/DateNone recorded 01/14/2025 - 10:45AM - [facility] History of Present IllnessMr. Tovar is a 68-year-old male who returns for follow-up visit. He continues to get his AICD followed [facility] EP he has not had any defibrillator discharge. At the time of his last visit he was complaining of erectile dysfunction so I discontinued his isosorbide and put him on sildenafil. Although he still on the isosorbide mononitrate and did not get the sildenafil. Shortness of breath has improved and only notices some shortness of breath if he goes up steps. His back pain is better and he was found to be a suboptimal candidate for back surgery. He still has an intermittent cough which has been chronic for years. He is compliant with his medications. He denies any side effects from his current medications. He is compliant with his medications. He denies any chest pain, paroxysmal nocturnal dyspnea, orthopnea presyncope, syncope, palpitations or pedal edema. Review of Systems Patient reports no dry eyes, no vision change, and no irritation;no scleral icterus. He reportsknown heart murmurbut reports no chest pain, no arm pain on exertion, no shortness of breath when walking, no shortness of breath when lying down, and no palpitations. He reports no fever, no night sweats, no significant weight gain, no significant weight loss, and no exercise intolerance. He reports no difficulty hearing and no ear pain. He reports no frequent nosebleeds, no nose problems, and no sinus problems. He reports no sore throat, no bleeding gums, no snoring, no dry mouth, no mouth ulcers, no oral abnormalities, and no teeth problems. He reports no cough, no wheezing, no shortness of breath, no coughing up blood, and no sleep apnea. He reports no abdominal pain, no constipation, no vomiting, normal appetite, no diarrhea, not vomiting blood, no dyspepsia, and no GERD. He reports no incontinence, no difficulty urinating, no hematuria, and no increased frequency. He reports no muscle aches, no muscle weakness, no arthralgias/joint pain, no back pain, and no swelling in the extremities. He reports no abnormal mole, no jaundice, no rashes, and no laceration. He reports no loss of consciousness, no weakness, no numbness, no seizures, no dizziness, no headaches, and no tremor. He reports no depression, no sleep disturbances, feeling safe in a relationship, no alcohol abuse, no anxiety, no hallucinations, and no suicidal thoughts. He reports no fatigue. He reports no swollen glands and no bruising. He reports no runny nose, no sinus pressure, no itching, no hives, and no frequent sneezing. Vitals Ht: 5 ft 4 in Wqyung7601/14/2025 10:52 am Wt: 185.2 lbs Ksxavx4601/14/2025 11:06 am BMI: 31.802 11:06 am BP: 118/76 sitting L arm01/14/2025 11:13 am Pulse: 87 bpm diqwmvh9601/14/2025 11:07 am O2Sat: 94% Room Air at Rest01/14/2025 11:07 am Results/InterpretationsNone recorded Physical ExamGENERAL APPEARANCE: The patient is in no acute distress. His appears to be quite anxiousHEAD: Atraumatic, normocephalic.EYES: No scleral icterus.NECK/THYROID: Neck is supple without lymphadenopathy. Carotid pulses 2+, normal carotid upstroke, no carotid bruits.SKIN: No rashes and no jaundice seen.HEART: The rhythm and rate regular. S1 and S2 were auscultated with a grade 3/6 mid-peaking systolic murmur heard loudest at the right upper sternal border radiating to the carotid arteries equally.LUNGS: Clear to auscultation bilaterally.ABDOMEN: Normal bowel sounds, soft non distended, no tenderness.EXTREMITIES: No cyanosis, clubbing, trace left ankle edemaNEUROLOGIC: Grossly intact.PSYCH: Alert and oriented x 3 Assessment and PlanLabs completed 05/06/2024 Cholesterol 109, Triglycerides 105, HDL 42, LDL 46 Labs completed on 11/16/2023 WBC 6.3, Hgb(12.1), Platelets 270, Sodium 135, Potassium 4.0, Chloride 99, Co2 28, BUN(37), Creatinine(1.47), Glucose 100, Calcium(8.2) Labs completed on 04/17/2023 Cholesterol 132, HDL(38), LDL 78, Trig 78 ECG done on 01/14/2025 shows sinus rhythm with a rate 79 beats per minute, frequent PVCs with 1 PVC couplet, left axis deviation, poor R-wave progression can not rule out old anterolateral infarction possible old inferior infarction and nonspecific T-wave abnormality in anterolateral leads, compared to the previous EKG done 02/18/2024, PVCs are now seen and PACs are no longer seen otherwise no other significant changes ASSESSMENT Congestive heart failure, [place] heart Association class 2 symptoms, improved since he had COVID back in November of 2020 Coronary artery disease with nonobstructive coronary artery disease on catheterization done on 04/05/2022 Dyspnea on exertion since he had a COVID infection December [address] scan done in July showing near resolution of his ground-glass opacities in his chest but he still has symptoms particularly with walking up steps or walking long distances giving him class 2 dyspnea improved since COVID in November 2020 but not back to baseline, likely secondary to his nonischemic cardiomyopathy Pure hypercholesterolemia on rosuvastatin 40 mg daily Zetia with LDL not at quite at ideal goal Cardiomyopathy, nonischemic, moderate of the on echocardiogram done on in the setting of a patient who had recently had COVID-19 infection however his ejection fraction has not improved remains 25-30% on his most recent echocardiogram done on 06/25/2022 with AICD placed on 02/14/2023 managed by [facility] with a dual-chamber device. Mild aortic stenosis with aortic valve area of 1.6 centimeters squared with a peak gradient 23 mm of mercury and a mean gradient of 13 mm of mercury on echocardiogram done on 03/13/2022 Diastolic dysfunction grade 3 Nonsustained ventricular tachycardia ranging between 3-7 beats with heart rates ranging between 96 and 250 beats per minute which were asymptomatic on Holter monitor done on 03/18/2022 Inappropriate sinus tachycardia with 21% times classified as tachycardia with heart rate greater than 100 beats minute on Holter monitor done on 03/13/2022 PVCs-6% PVC burden, asymptomatic on Holter monitor done on 03/13/2022 Mild biatrial enlargement on echocardiogram done on 03/13/2022 Hypertension - controlled Mild tricuspid regurgitation by echocardiogram done on 02/08/2021 Elevated liver transaminases Hyperkalemia the past so was not on ARB or lisinopril, now improved, furthermore could not afford Entresto at 1 time was eating bananas frequently now and a low-potassium diet now tolerating low-dose irbesartan Elevated TSH with borderline low free T4, borderline for hypothyroidism Plan-I recommend healthy diet which low in fat, low cholesterol low in sodium in low in potassium. I will discontinue the isosorbide mononitrate as he has some ED and we are going to treat him with sildenafil so I taking his bottle of isosorbide mononitrate and we will dispose of it and I have had my nurse call and stop the isosorbide mononitrate. I will send in a prescription for sildenafil 50 mg that he can take 1 hour prior to intercourse to see if this helps with his erectile dysfunction. I asked him to continue his aspirin 81 mg daily, Zetia 10 mg daily, furosemide 40 mg daily, hydralazine 50 mg p.o. t.i.d., irbesartan 75 mg daily, metoprolol XL 12.5 mg daily and rosuvastatin 20 mg daily. He is to continue to follow with EP over at [facility] for management of his AICD. Once again I reminded him not to take the isosorbide mononitrate as I am going to give him p.r.n. sildenafil and I told him there can be a life-threatening reaction if he takes the isosorbide mononitrate so he has to completely discontinue the isosorbide mononitrate. I will have him return in 3 months time and get a fasting lipid profile, complete metabolic profile CBC prior to his follow-up visit. I will also have him get a TSH with reflex and obtain a 2D echo Doppler prior to his follow-up visit in 3 months' time to re-evaluate his LV function in his aortic stenosis. I have asked him to return in 3 months' time and return sooner if he has any cardiac issues or problems. CARDIAC TESTING:ECHOCARDIOGRAM03/10/2024 Complete two dimensional color flow and doppler transthoracic echocardiogram. Left ventricular chamber dimension is normal. Left ventricular systolic function is mildly reduced estimated at 40-45%. The apex appears to be severely hypokinetic. Definity was not administered cannot rule out other regional wall motion abnormalities. The left ventricular diastolic function is grade 1 diastolic dysfunction. Global longitudinal strain is abnormal at 11%. Right ventricular systolic function is normal. Left atrial chamber dimension is moderately enlarged. There is moderate aortic valve calcification. There is mild aortic valve stenosis. Normal inferior vena cave with >50% collapse upon inspiration consistent with normal right atrial pressure.DXHDOSMPSMTYHE56/23/2023 left-ventricular systolic function is severely reduced with an ejection fraction of 25 to 30% aortic valve sclerotic moderately without stenosis severe wall motion abnormality with akinesia in the mid to distal anteroseptal, anterior and anterolateral wall similar to prior study done on 06/25/2022, grade 1 diastolic jkxtjkpktbtMCUXTMLHBPJNVO98/02/22 . Limited 2D study. Moderate to Severe left ventricular dysfunction with an LVEF of 25-30%. The right ventricle is normal size. The right ventricular systolic function is normal.Mild to moderate left atrial enlargement, aortic sclerosis, Doppler not performed since 2D study There is mild mitral valve prolapse. Prolapse of the posterior mitral leaflet(s).Aortic valve sclerosis' moderate'.Pleural effusion noted.24 HOUR HOLTER MONITORHe had a 24 hour Holter monitor on 03/18/2022 which showed underlying rhythm was sinus rhythm with heart rates ranging between 6731 beats minute with an average heart rate of 97 beats minute with 21% time classified as tachycardia with heart rate greater than 100 beats minute. There was 6% PVC burden, predominantly isolated with 6563 isolated PVCs, 471 couplets and 654 bigeminal cycles with 3-7 beat runs of ventricular tachycardia ranging between 96 and 250 beats per minute all of which were asymptomatic, it rare isolated PACs numbering 35, there were no symptoms during the Holter monitor no supraventricular tachycardia or significant pauses noted.CARDIAC CRNMZQOVKDTGDQW01/13/2022 which showed mild nonobstructive coronary artery disease in the major epicardial vessels with moderate disease with 40% stenosis in a large 2nd diagonal branch, moderately dilated with severe global left ventricular systolic dysfunction with an ejection fraction of 25-30% consistent with nonischemic cardiomyopathy with an elevated LVEDP likely due to hypertensive heart disease, there was 1 to 2+ mitral regurgitation on left ventricular cineangiogram, elevated systemic arterial blood pressure with aortic pressure 171/82 mm mercury and left ventricular end-diastolic pressure was 26 mm of mercury. 1. Essential hinixpfkbxxdY40: Essential (primary) hypertension ELECTROCARDIOGRAM CMP, SERUM OR PLASMA - To be performed on or around 04/14/2025 2. TwzvebpT96.9: Obesity, unspecified A HEALTHY LIFESTYLE: CARE INSTRUCTIONS 3. Acute on chronic systolic heart tflnhpgM09.23: Acute on chronic systolic (congestive) heart failure 4. Diastolic grvmfsosgddE10.9: Heart disease, unspecified 5. Erectile sefssynkaukG01.21: Male erectile disorder sildenafil 50 mg tablet - take one tablet one hour prior to intercourse Qty: (10) tablet Refills: 1 Pharmacy: [facility] #[id number] Note to Pharmacy: Cancel prescription for isosorbide mononitrate 6. Inappropriate sinus zsiwqqnkqtrW12.11: Inappropriate sinus tachycardia, so stated 7. Nonischemic congestive rikoconfobdnzeE75.0: Dilated cardiomyopathy 8. Pure ithdxpyyprgcwxwezkygQ85.00: Pure hypercholesterolemia, unspecified LIPID PANEL, SERUM - To be performed on or around 04/14/2025 9. Thyroid stimulating hormone level above reference zggakY94.6: Abnormal results of thyroid function studies TSH, SERUM, REFLEX FREE T4 - To be performed on or around 04/14/2025 10. Long-term current use of antiplatelet drugZ79.02: halfway (current) use of antithrombotics/antiplatelets CBC W/ AUTO DIFF - To be performed on or around 04/14/2025 11. Aortic valve gpknhmgucG60.8: Other nonrheumatic aortic valve disorders US, ECHOCARDIOGRAM, TRANSTHORACIC, COMPLETE, W/ COLOR FLOW - To be performed on or around 03/24/2025Place of [facility] Procedure code: 02920 Authorization: [employer] - [employer] (Medicare Replacement/Advantage - HMO) [place] [address] Return to Office to see Don Triana MD at [facility] on or around 04/13/2025 Patient Medical History: Allergies List Reviewed Allergies Medications Reviewed Medications NameDate Source albuterol sulfate HFA 90 mcg/actuation aerosol inhalerINHALE 2 PUFFS BY MOUTH EVERY 6 HOURS NEEDED FOR JOJGPJSG72/12/23 filled surescripts aspirin 81 mg tablet,delayed releaseTAKE 1 TABLET BY MOUTH DAILY AT 9 AM12/16/24 filled surescripts clotrimazole-betamethasone 1 %-0.05 % topical creamAPPLY 1 APPLICATION ONTO THE AFFECTED AREA(S) ON THE FEET TWICE DAILY10/19/24 filled surescripts DULoxetine 30 mg capsule,delayed releaseTAKE 1 CAPSULE BY MOUTH EVERY DAY11/25/24 filled surescripts ezetimibe 10 mg tabletTAKE 1 TABLET BY MOUTH DAILY AT 9 AM12/18/24 filled surescripts furosemide 40 mg tabletTAKE 1 TABLET BY MOUTH DAILY AT 9 AM12/27/24 filled surescripts hydrALAZINE 50 mg tabletTAKE 1 TABLET BY MOUTH THREE TIMES A DAY11/25/24 filled surescripts hydrocortisone 2.5 % topical creamAPPLY TOPICALLY TWICE A DAY NEEDED FOR RASH11/25/24 filled surescripts irbesartan 150 mg tabletTAKE 1 TABLET BY MOUTH EVERY DAY AT NIGHT10/26/24 filled surescripts metoprolol succinate ER 25 mg tablet,extended release 24 hrTAKE HALF OF A TABLET BY MOUTH ONCE DAILY01/04/25 filled surescripts pramipexole 1.5 mg tabletTAKE 1 TABLET BY MOUTH TWICE A DAY11/25/24 filled surescripts rosuvastatin 40 mg tabletTAKE 1 TABLET BY MOUTH EVERY DAY11/25/24 filled surescripts sildenafiL 50 mg tablettake one tablet one hour prior to fvvtuwpxcgt23/21/25 prescribed Don Triana MD 01/14/2025 verified verbally with pt Family HistoryFamily History not reviewed (last reviewed 10/26/2018) Father - No current problems or disability Mother - No current problems or disability Past Medical HistoryPast Medical History not reviewed (last reviewed 10/26/2018) Depression:Y Vaccine HistoryVaccines not reviewed (last reviewed 10/26/2018) Vaccine Type Date Amt. Route Site [facility] Lot # [id number]. Exp. Date VIS VIS Given On Call Pharmacy Technician Diphtheria, Tetanus, Pertussis Tdap 05/18/16 [facility] Influenza influenza, injectable, quadrivalent 10/26/18 0.5 mL Intramuscular Deltoid, Left [id number] [employer] 05/23/19 TIV/QIV 06/30/2015 10/26/18 [facility] [place] Electronically Signed by: DON TRIANA MD SUSHMA Wolfe OR - [facility] 01/17/2025 15:47:49 Procedures Surgical History Date Name Laterality Status Provider Name and Address Organization Details Recorded Time 5 Back Surgery completed Alta Gary MA OR - [facility] 11/20/2016 11:14:00 Carpal tunnel surgery completed Altadolores Gary [facility] [place] - [facility] 11/20/2016 11:14:09 Knee Surgery completed Alta Gary MA [place] - [facility] 11/20/2016 11:14:16 Shoulder joint surgery completed Alta Gary MA OR - [facility] 11/20/2016 11:15:29 Imaging Results None recorded. Procedure Notes None recorded. Medical Equipment None Reported. Allergies Allergen ID Allergen Name Allergen Category Reaction Reaction Severity Criticality Documentation Date Start Date Code Code System Note Provider Name and Address Organization Details Recorded Time 609886 hydrochlo rothiazid e / telmisart an medicatio n dizziness Not available low 09/29/20252019 79223 6 RxNorm Not Available [facility] [employer] - prod 5 10:03:33 657160 quetiapin e medicatio n Not available Not available low 09/29/20252023 63119 RxNorm unrec ogniz ed react ion (text : Zac badillo, code: [id number]) (from exter [facility]) Not Available [employer] - prod 5 10:03:33 49953 Seroquel medicatio n confusion Not available Not available 11/20/2016 77231 RxNorm SUSHMA Davis, [place] - [facility] 4 16:00:54 Medications Name Sig Start Date Stop Date Status Note LastModified by Organization Details LastModified Time carisoprod ol 350 mg tablet Take 1 tablet every 8 hours by oral route as needed. 06/29 completed Not Available Not Available Not Available cyclobenza martha 10 mg tablet TAKE 1 TABLET BY MOUTH THREE TIMES A DAY NEEDED FOR MUSCLE SPASMS 02/17 completed Not Available Not Available Not Available pramipexol e 1 mg tablet 02/13 completed Not Available Not Available Not Available furosemide 40 mg tablet TAKE 1 TABLET BY MOUTH DAILY AT 9 AM active Not Available Not Available No t Available hydrocodon e 7.5 mg-ibuprof en 200 mg tablet 06/29 completed Not Available Not Available Not Available prednisone 10 mg tablet TAKE 4 PILLS ON DAY 1, 3 PILLS ON DAYS 2-4, 2 PILLS ON DAYS 5 AND 6, AND 1 PILL ON DAY 7 02/17 completed Not Available Not Available Not Available doxycyclin e hyclate 100 mg capsule TAKE 1 CAPSULE BY MOUTH TWICE A DAY active Not Available Not Available No t Available clindamyci n HCl 300 mg capsule 06/29 completed Not Available Not Available Not Available sildenafil 50 mg tablet TAKE ONE TABLET ONE HOUR PRIOR TO INTERCOU RSE 08/23 completed Not Available Not Available Not Available azithromyc in 250 mg tablet TAKE 2 TABLETS BY MOUTH TODAY, THEN TAKE 1 TABLET DAILY FOR 4 DAYS DIRECTED 02/17 completed Not Available Not Available Not Available alprazolam 1 mg tablet 06/29 completed Not Available Not Available Not Available benzonatat e 200 mg capsule TAKE 1 CAPSULE (200 MG TOTAL) BY MOUTH 3 (THREE) TIMES A DAY NEEDED FOR COUGH FOR UP TO 7 DAYS. 02/17 completed Not Available Not Available Not Available valacyclov ir 1 gram tablet TAKE 1 TABLET (1,000 MG TOTAL) BY MOUTH 2 (TWO) TIMES A DAY FOR 8 DOSES 02/17 completed Not Available Not Available Not Available hydrocodon e 5 mg-acetami nophen 325 mg tablet TAKE 2 TABLETS BY MOUTH EVERY 8 HOURS NEEDED FOR PAIN. 01/14 completed Not Available Not Available Not Available prednisone 20 mg tablet PLEASE SEE ATTACHED FOR DETAILED DIRECTIO NS 01/14 completed Not Available Not Available Not Available isosorbide mononitrat e ER 30 mg tablet,ext ended release 24 hr Take 1 tablet every day by oral route in the morning. 01/14 completed Not Available Not Available Not Available sertraline 100 mg tablet psych 10/26 completed not taking Not Available Not Available Not Available verapamil ER (SR) 180 mg tablet,ext ended release Take 1 tablet every day by oral route. 02/17 completed Not Available Not Available Not Available hydralazin e 25 mg tablet TAKE 1 TABLET BY MOUTH THREE TIMES A DAY 02/17 completed Not Available Not Available Not Available acetaminop hen 300 mg-codeine 30 mg tablet TAKE 1 TABLET BY MOUTH EVERY 6 TO 8 HOURS NEEDED FOR PAIN WITH FOOD active Not Available Not Available No t Available amlodipine 5 mg tablet Take 1 tablet every day by oral route. 10/26 completed Not Available Not Available Not Available sulfametho xazole 800 mg-trimeth oprim 160 mg tablet TAKE 1 TABLET EVERY 12 HOURS FOR 14 DAYS 06/29 completed Not Available Not Available Not Available hydrocodon e 10 mg-acetami nophen 325 mg tablet TAKE 1 TABLET BY MOUTH EVERY 8 HOURS NEEDED FOR PAIN active Not Available Not Available No t Available aspirin 81 mg tablet,del ayed release TAKE 1 TABLET BY MOUTH DAILY AT 9 AM active Not Available Not Available No t Available tramadol 50 mg tablet Take 1 tablet every 8 hours by oral route as needed. 06/29 completed Not Available Not Available Not Available levothyrox ine 25 mcg tablet TAKE 1 TABLET BY MOUTH EVERY DAY 02/17 completed Not Available Not Available Not Available ketorolac 10 mg tablet TAKE 1 TABLET BY MOUTH EVERY 6 HOURS NEEDED FOR PAIN. active Not Available Not Available No t Available oxycodone- acetaminop hen 5 mg-325 mg tablet 06/29 completed Not Available Not Available Not Available terbinafin e HCl 250 mg tablet TAKE 1 TABLET BY MOUTH EVERY DAY 08/23 completed Not Available Not Available Not Available alprazolam 0.5 mg tablet TAKE 1 TABLET BY MOUTH THREE TIMES A DAY NEEDED 10/26 completed Not Available Not Available Not Available oxycodone- acetaminop hen 10 mg-325 mg tablet 06/29 completed Not Available Not Available Not Available trazodone 100 mg tablet 06/29 completed Not Available Not Available Not Available benzonatat e 100 mg capsule TAKE 1 CAPSULE BY MOUTH THREE TIMES A DAY NEEDED FOR COUGH 02/17 completed Not Available Not Available Not Available ropinirole 2 mg tablet 06/29 completed Not Available Not Available Not Available cephalexin 500 mg capsule 06/29 completed Not Available Not Available Not Available ranitidine 150 mg tablet 06/29 completed Not Available Not Available Not Available buspirone 10 mg tablet Take 1 tablet twice a day by oral route as needed. 02/17 completed Not Available Not Available Not Available clotrimazo le-betamet hasone 1 %-0.05 % topical cream APPLY 1 APPLICAT ION ONTO THE AFFECTED AREA(S) ON THE FEET TWICE DAILY active Not Available Not Available No t Available mupirocin calcium 2 % topical cream 06/29 completed Not Available Not Available Not Available gabapentin 300 mg capsule TAKE 1 CAPSULE BY MOUTH TWICE A DAY 01/14 completed Not Available Not Available Not Available irbesartan 75 mg tablet TAKE 1 TABLET BY MOUTH EVERY DAY AT NIGHT active Not Available Not Available No t Available hydrocorti sone 2.5 % topical cream APPLY TOPICALL Y TWICE A DAY NEEDED FOR RASH active Not Available Not Available No t Available hydralazin e 50 mg tablet TAKE 1 TABLET BY MOUTH THREE TIMES A DAY active Not Available Not Available No t Available gabapentin 100 mg capsule TAKE 1 CAPSULE BY MOUTH THREE TIMES A DAY 08/23 completed Not Available Not Available Not Available metoprolol succinate ER 25 mg tablet,ext ended release 24 hr TAKE HALF OF A TABLET BY MOUTH ONCE DAILY active Not Available Not Available No t Available irbesartan 150 mg tablet TAKE 1 TABLET BY MOUTH EVERY DAY AT NIGHT 09/01 completed Not Available Not Available Not Available zolpidem 10 mg tablet psych 10/26 completed Not Available Not Available Not Available methylpred nisolone 4 mg tablets in a dose pack PLEASE SEE ATTACHED FOR DETAILED DIRECTIO NS 01/14 completed Not Available Not Available Not Available albuterol sulfate HFA 90 mcg/actuat ion aerosol inhaler INHALE 2 PUFFS BY MOUTH EVERY 6 HOURS NEEDED FOR WHEEZING 08/23 completed Not Available Not Available Not Available Hibiclens 4 % topical liquid Apply 1 applicat ion every day by topical route. 06/29 completed Not Available Not Available Not Available pramipexol e 1.5 mg tablet TAKE 1 TABLET BY MOUTH TWICE A DAY active Not Available Not Available No t Available tobramycin 0.3 %-dexameth asone 0.1 % eye drops,susp ension 06/29 completed Not Available Not Available Not Available Fish Oil 500 mg capsule Take 1 capsule every day by oral route. 01/14 completed Not Available Not Available Not Available ezetimibe 10 mg tablet TAKE 1 TABLET BY MOUTH DAILY AT 9 AM active Not Available Not Available No t Available rosuvastat in 20 mg tablet Take 1 tablet every day by oral route. 01/14 completed Not Available Not Available Not Available rosuvastat in 40 mg tablet TAKE 1 TABLET BY MOUTH EVERY DAY active Not Available Not Available No t Available duloxetine 30 mg capsule,de layed release TAKE 1 CAPSULE BY MOUTH EVERY DAY active Not Available Not Available No t Available doxycyclin e hyclate 100 mg tablet,del ayed release TAKE 1 TABLET BY MOUTH TWICE A DAY FOR 10 DAYS 02/17 completed Not Available Not Available Not Available quetiapine 50 mg tablet psych 10/26 completed Not Available Not Available Not Available sacubitril 49 mg-valsart an 51 mg tablet TAKE 1 TABLET BY MOUTH TWICE A DAY 09/08 completed Not Available Not Available Not Available Vitals Date Recorded Body height Body mass index (BMI) Body weight Heart rate Oxygen saturation Oxygen saturation in Arterial blood by Pulse oximetry Systolic And Diastolic Provider Name and Address Organization Details Last Updated DateTime 5 162.56 cm 31.8 kg/m2 48544.3 1 g 87 /min 94 % 94 % 118/76 mm[Hg] Cristiane Paulino MA [facility] 5 12:13:59 Date Recorded Body height Body mass index (BMI) Body weight Heart rate Oxygen saturation Oxygen saturation in Arterial blood by Pulse oximetry Systolic And Diastolic Provider Name and Address Organization Details Last Updated DateTime 4 162.56 cm 30.9 kg/m2 77435.6 3 g 74 /min 93 % 93 % 112/74 mm[Hg] June Lehman MA [facility] 4 16:08:36 Date Recorded Body height Body mass index (BMI) Body weight Heart rate Oxygen saturation Oxygen saturation in Arterial blood by Pulse oximetry Systolic And Diastolic Provider Name and Address Organization Details Last Updated DateTime 5 162.56 cm 30.7 kg/m2 85822.9 6 g 77 /min 96 % 96 % 144/88 mm[Hg] Cristiane Paulino MA [facility] 5 15:22:19 Date Recorded Body height Body mass index (BMI) Body weight Heart rate Respiratory rate Body temperature Oxygen saturation Oxygen saturation in Arterial blood by Pulse oximetry Systolic And Diastolic Systolic And Diastolic Provider Name and Address Organization Details Last Updated DateTime 8 165.1 cm 27.7 kg/m2 03716.0 5 g 76 /min 12 /min 97.8 [degF] 100 % 100 % 150/98 mm[Hg] 152/96 mm[Hg] Brigette Mills [facility] 8 11:10:38 Date Recorded Body height Body mass index (BMI) Body weight Heart rate Respiratory rate Body temperature Oxygen saturation Oxygen saturation in Arterial blood by Pulse oximetry Systolic And Diastolic Provider Name and Address Organization Details Last Updated DateTime 8 165.1 cm 28.2 kg/m2 50996.8 3 g 99 /min 12 /min 97.7 [degF] 100 % 100 % 138/90 mm[Hg] Brigette Mills [facility] 8 11:44:42 Social History Question Answer Notes LastModified by [employer] Details LastModified Time Tobacco Smoking Status Never Smoker SUSHMA Hitchcock, [facility] 11/20/2016 11:12:56 What Is Your Level Of Caffeine Consumption? Moderate Coffee Information not available 06/29/2018 How Much Tobacco Do You Chew? None Information not available 06/29/2018 What Type Of Diet Are You Following? REGULAR Information not available 06/29/2018 Which Illicit Or Recreational Drugs Have You Used? Denies Information not available 06/29/2018 Education 9 Information no t available 06/29/2018 Marital Status Informatio n not available 06/29/2018 What Was The Date Of Your Most Recent Tobacco Screening? 01/14/2025 Information not available 01/14/2025 General Stress Level Medium Information not available 09/24/2018 Sex: Unknown Functional Status Question Answer Note LastModified by [employer] Details LastModified Time Do you use any illicit or recreational drugs? No Information not available 01/14/2025 Do you or have you ever used any other forms of tobacco or nicotine? No Information not available 01/14/2025 What is your level of alcohol consumption? 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 None Information not available 06/29/2018 Mental Status None recorded. Family History Relationship Description Onset Age of this Age Resolved Age Notes LastModified by Organization Details LastModified Time Father No current problems or disability [email or web address] Not available 11/20 11:12:42 Mother No current problems or disability [email or web address] Not available 11/20 11:12:42 Medical History Condition Response Anxiety Disorder Y Skin Problems Y Muscle, Joint, or Bone Problems Y Depression Y Immunizations Vaccine Type Date Status Note Provider Nam e and Address Organization Details Recorded Time Influenza, split virus, quadrivalent, preservative 8 completed Not Available [facility] 12/11/2019 02:50:24 Tdap 6 completed Alta Gary MA [place], [place] - [facility] 11/20/2016 11:19:24 Past Encounters Encounter ID Performer Location Encounter Start Date Encounter Closed Date Diagnosis/Indication Diagnosis SNOMED-CT Code Diagnosis ICD10 Code Diagnosis IMO Codes Diagnosis Note [id number] MD Kyara Franklin (Adult Med) [address] [place] [address] 11/20/2016 10:45:28 11/20/2016 13:16:17 Restless legs syndrome 54328338 G25.81 Cellulitis 029148332 L03 .90 Pain of mu ltiple joints 67155903 M25.50 Exposure to toxin 534044 005 Z57.5 Anxiety disorder 7336488 06 F41.9 On examina tion - cardiac murmur 613253937 R01.1 History of hypothyroidism 246008111 Z86.39 [id number] [facility] [address] [place] [address] 02/13/2017 12:00:53 02/13/2017 13:13:00 Pain of multiple joints 59536295 M25.50 Restless l egs syndrome 22463408 G25.81 [id number] MD Dwayne Rader (Adult Med) [address] [place] [address] 06/29/2018 10:12:16 06/30/2018 11:19:42 Mixed anxiety and depressive disorder 963411007 F41.8 pt is seeing psych in [place] -wants to find new one Restless l egs syndrome 01107030 G25.81 continue same Benign hypertension 1072 5009 I10 start pt on amlodipine Screening for malignant neoplasm of colon 774992206 Z12.11 pt declined colonoscop y [id number] [facility] [address] [address] 09/24/2018 10:53:10 09/24/2018 14:23:08 Screening for malignant neoplasm of colon 459048390 Z12.11 pt declined colonoscop y Mixed anxi ety and depressive disorder 578098444 F41.8 pt was seeing psych in [facility] -want to find new onewill give busparpt is informed that xanax is not going to be prescribed pt declined to take ssri/zolof tpt was referred to psychiatri , did not go -will send referral againAvoid control substances Benign hypertension 1072 5009 I10 pt is noncomplia nt with amlodipine pt to restart medpt to do labs Restless l egs syndrome 02091427 G25.81 continue same [id number] Vickie Peraza MD [facility] (Adult Med) [address] [facility] [address] [place] [address] 10/26/2018 11:20:55 10/26/2018 15:12:12 Administration of influenza vaccine 10375758 Z23 Benign hypertension 1072 5009 I10 pt has headache with amlodipine -will change to verapamil Mixed anxi ety and depressive disorder 010503474 F41.8 pt was seeing psych in [facility] to find new onept did not get buspar from pharmacy yet -will send rx againpt is informed that xanax is not going to be prescribed pt declined to take ssri/zolof tpt has apt to see psychiatri on 12/16/18Avo id control substances Hypothyroidism 66558366 E03.9 pt to continue levothyrox in 25 mcg daily Restless l egs syndrome 69435406 G25.81 continue Pramipexol e Injury of back of neck 216436923 S19.9XXS and lower back injury-s/p sx in 2005pt to try gabapentin which helps with pain/anxie ty and sleep [id number] Don Triana MD [facility] [place] [facility] [address] [facility] [address] [place] [address] 02/18/2024 15:49:24 02/19/2024 10:14:25 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 Pure hypercholesterolemia 594408222 E78.00 Acute on c hronic systolic heart failure 898840711 I50.23 Nonsustain ed monomorphic ventricular tachycardia 1479940117 I47.29 Inappropri ate sinus tachycardia 510373354 I47.11 Diastolic dysfunction 35 92458 I51.9 Ventricula r premature complex 113420890 I49.[address] imulating hormone level above reference range 868916016 R94.6 Erectile dysfunction 860 680275 F52.21 Fatigue 20560840 R53.83 [id number] Don Triana MD [facility] [place] [facility] [address] [place] [address] 01/14/2025 11:24:07 01/17/2025 08:09:58 Essential hypertension 57334304 I10 Obesity 611352506 E66.9 Acute on c hronic systolic heart failure 603894310 I50.23 Diastolic dysfunction 35 62802 I51.9 Erectile dysfunction 860 232633 F52.21 Inappropri ate sinus tachycardia 278186658 I47.11 Nonischemi c congestive cardiomyopathy 7293977623 04 I42.0 Pure hypercholesterolemia 080621347 E78.[address] imulating hormone level above reference range 740960216 R94.6 Long-term current use of antiplatelet drug 6015618996 95340 Z79.02 Aortic savanna ve sclerosis 10757402 I35.8 [id number] Don Triana MD [facility] [place] [facility] [address] [place] [address] 08/23/2025 14:28:03 08/26/2025 11:35:02 Essential hypertension 85854590 I10 Obesity 693817292 E66.9 Acute on c hronic systolic heart failure 205271866 I50.23 Diastolic dysfunction 35 77261 I51.9 Erectile dysfunction 860 880548 F52.21 Inappropri ate sinus tachycardia 684257029 I47.11 Nonischemi c congestive cardiomyopathy 1462167043 04 I42.0 Pure hypercholesterolemia 631797615 E78.[address] imulating hormone level above reference range 791799467 R94.6 Long-term current use of antiplatelet drug 5616119101 99654 Z79.02 Aortic savanna ve sclerosis 92269369 I35.8 Health Concerns Section Related Observation LastModified by Organization Detai ls LastModified Time None Recorded Concern Status LastModified by Organization Details LastModified Time None Recorded Advance Directives Directive None Recorded Payers Insurance Date Sequence Insurance Name Policy Number Policy Rey Covered Member ID Rey Member ID Guarantor Name 08/23/2025 1 [employer] [place] (MEDICARE REPLACEMENT HMO) Eliud Tovar [id number] Himanshu Tovar 08/26/2025 1 [employer] - [facility] (MEDICARE REPLACEMENT/AD VANTAGE - HMO) [id number] Eliud Telma Guy [id number] Himanshu Tovar 06/29/2018 1 *SELF PAY* [facility] Tovar 06/29/2018 SLIDING FEE SCHEDULE - DISCOUNT Himanshu Tovar Notes Date Note Type Note Provider Name and Address Organization Details Recorded Time 09/24/20 18 text/ht ml Hypertension F/UReported by PatientHPIFor medications, patient reportsnot taking medications as directedbut reportsno side effects from medication. For associated symptoms, patient reportsno dizziness,no chest pain,no shortness of breath,no palpitations, andno edema. For lifestyle, patient reportsregular exerciseandlimiting/avoiding salt. Anxiety/DepressionReported by PatientHPIFor quality, patient reportsmood worseandincreased anxiety. For context, patient reportsmajor life stressors ()andrelationship stress(lives with friend / pt is on disability due to back injury/neck injury). For associated symptoms, patient reportsanxietyanddepressionbut reportsdenies homicidal ideations. For severity, patient reportsdenies suicidal ideations.pt missed f/u , requesting refill on his anxiety med /xanax. pt has anxiety/depression . Pt was seeing psychiatrist in [facility] for depression/anxiety , wants to find someone closer to home . pt is not taking Zoloft at present time and it made him sick per pt. pt got xanax from his sister couple of days ago. pt is counselled regarding taking meds from others . Vickie Peraza MD Attn: Accounting, [address] [facility], [place], [address], [facility] 09/24/2018 11:50:46 10/26/20 18 text/ht ml Hypertension F/UReported by PatientHPIFor medications, patient reportsside effects from medications (headache)but reportstaking medications as directed. For associated symptoms, patient reportsno dizziness,no chest pain,no shortness of breath,no palpitations, andno edema. For lifestyle, patient reportsregular exerciseandlimiting/avoiding salt. Anxiety/DepressionReported by PatientHPIFor quality, patient reportsmood worseandincreased anxiety. For context, patient reportsmajor life stressors ()andrelationship stress(lives with friend / pt is on disability due to back injury/neck injury). For associated symptoms, patient reportsanxietyanddepressionbut reportsdenies homicidal ideations. For severity, patient reportsdenies suicidal ideations.Pt was seeing psychiatrist in [facility] for depression/anxiety , was taking xanax /ambien - wants to find someone closer to home . pt is not taking Zoloft as prescribed at present time and it made him sick per pt. pt did not get buspar which was prescribed on last visit . Vickie Peraza MD Attn: Accounting, [address] [place], [address], [facility] 10/26/2018 13:03:44 02/18/20 24 text/ht ml Mr. Tovar is a 68-year-old male who returns for follow-up visit. He denies any shortness of breath. He does complain of erectile dysfunction and has not been able to take any PDE 5 inhibitor since he is on isosorbide mononitrate. He did see a back surgeon who felt he was not a surgical candidate due to the diffuse nature of disease in his back. He is once again complaining of fatigue and attributes it to his chronic lower back pain. He still has an intermittent cough which has been chronic for years. He is compliant with his medications. He denies any side effects from his current medications. He is compliant with his medications. He denies any chest pain, paroxysmal nocturnal dyspnea, orthopnea presyncope, syncope, palpitations or pedal edema. Don Triana MD Attn: Accounting, [address] [place], [address], [facility] 02/18/2024 17:37:05 01/14/20 25 text/ht ml Mr. Tovar is a 68-year-old male who returns for follow-up visit. He continues to get his AICD followed [facility] EP he has not had any defibrillator discharge. At the time of his last visit he was complaining of erectile dysfunction so I discontinued his isosorbide and put him on sildenafil. Although he still on the isosorbide mononitrate and did not get the sildenafil. Shortness of breath has improved and only notices some shortness of breath if he goes up steps. His back pain is better and he was found to be a suboptimal candidate for back surgery. He still has an intermittent cough which has been chronic for years. He is compliant with his medications. He denies any side effects from his current medications. He is compliant with his medications. He denies any chest pain, paroxysmal nocturnal dyspnea, orthopnea presyncope, syncope, palpitations or pedal edema. Don Triana MD Attn: Accounting, [address] [facility], [place], [address], [facility] 01/14/2025 12:56:54 08/23/20 25 text/ht ml Mr. Tovar is a 70-year-old male who returns for follow-up visit. He does complain of feeling fatigued and needing to sleep frequently throughout the day. He does complain of some shortness of breath with going up steps but on flat ground he can get short of breath if he walks longer distances. He has no associated chest pain or pressure. He had an echocardiogram performed on 05/10/2025 on mildly dilated left atrium. Mildly dilated left ventricle. Mild concentric left ventricular hypertrophy. Moderate to severely depressed left ventricular systolic function. LV ejection fraction visually is 30-35%. Left ventricular diastolic parameters are consistent with Grade 1 diastolic dysfunction. Total wall motion score is 1.41. There is hypokinesis of the basal to mid anteroseptal wall. There sis hypokinesis of the entire inferoseptal wall. There is hypokinesis of the apical cap. There is hypokinesis of the apical lateral wall. The remaining left ventricular segments demonstrate normal wall motion. Aortic cusps appear mildly calcified. Trace aortic valve regurgitation. Moderate aortic valve stenosis. The peak transaortic gradient is 26.3mmHg. The mean transaortic gradient is 15.32mmHg. The aortic valve area by the continuity equation is 1.36cm2. There is trace to mild tricuspid regurgitation. The estimated right ventricular systolic pressure is 20mmHg. Normal estimated pulmonary artery systolic pressure. The IVC was <2.1 cm and collapsibility >50%. The RA pressure is estimated to be 3mmHg. He continues to get his AICD followed [facility] EP he has not had any defibrillator discharge. At the time of his last visit he was complaining of erectile dysfunction so I discontinued his isosorbide and put him on sildenafil although he is not taking the sildenafil he is taking Cialis which he gets on his own and says he is taking 80 mg as needed with some improvement in his ED but not complete resolution of his ED. he has not been having this cough of late as he has had it off and on for years. He is compliant with his medications. He denies any side effects from his current medications. He is compliant with his medications. He denies any chest pain, paroxysmal nocturnal dyspnea, orthopnea presyncope, syncope, palpitations or pedal edema. Don Triana MD Attn: Accounting, [address] [place], [address], [place] [facility] 08/23/2025 18:05:30
--- OUTSIDE RECORDS SUMMARY | 2025-09-29 20:57 | XMS_ITS | Clinical Summary ---
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 Gender Identity Not on file Sexual Orientation Not on file Plan of Treatment Health Maintenance Due Date Last Done Comments Hepatitis C Virus (HCV) Screening 1955 TdaP Immunization 1955 Cologuard 2001 Colonoscopy 2001 Colorectal Cancer Screening 2001 Immunochemical Fecal Occult Blood 2001 Pneumococcal Immunization (5 0+ years) (1 of 1 - PCV) 2006 Zoster Immunization (1 of 2) 2006 Influenza Immunization (#1) 2025 09/13/2020 SARS-COV-2 Immunization (1 - season) 2025 Respiratory Syncytial Virus (RSV) Immunization (Adult) (1 - 1-dose 75+ series) 2031 Hepatitis B Immunization Aged Out No longer eligible based on patient's age to complete this topic Human Papillomavirus (HPV) Immunization Aged Out No longer eligible b ased on patient's age to complete this topic Meningococcal Immunization (ACWY) Aged Out No longer eligible based on patient's age to complete this topic Rotavirus Immunization Aged Out No lo nger eligible based on patient's age to complete this topic
--- OUTSIDE RECORDS SUMMARY | 2025-09-29 20:57 | XMS_ITS | Clinical Summary ---
Author Organization [facility] Address [address] [place] [address] Phone Care Team Providers Care Keno Manager Name Role Phone Osiel Laurent MD Primary Care Provider [phone] Allergies No known active allergies Medications pramipexole (MIRAPEX) 0.5 mg tabletIndicatio ns:restless leg syndrome Take 1 Tab by mouth 2 times daily. Indications: RESTLESS LEGS SYNDROME 60 Tab 0 4 Active Additional Information Patient taking differently:0.5 mg OralDAILY AT BEDTIME, Indications: restless leg syndrome, Reported on 05/17/2015 ALPRAZolam (XANAX) 1 mg tablet Take 1 mg by mouth nightly as needed for Anxiety. Active oxyCODONE-aceta minophen (PERCOCET) 5-325 mg tablet Take 1 Tablet by mouth every 4 hours as needed for Pain, Mild (For Pain Scale 1-3). Max Daily Amount: 6 Tablet 60 Tablet 0 6 Active docusate sodium (COLACE) 100 mg capsule Take 1 Capsule (100 mg) by mouth 2 times daily. 6 Active LEVOTHYROXINE SODIUM (LEVOTHYROXINE ORAL) Take by mouth. Activ e LISINOPRIL ORAL Take by mouth. Active Active Problems Problem Noted Date Diagnosed Date Fall from roof 02/22/2016 Irregular heart beat 02/22/2016 Midline thoracic back pain 02/22/2016 Herpes simplex 05/17/2014 Restless leg syndrome 05/17/2014 Herpes 05/17/2014 Unspecified psychosis 05/17/2014 Substance abuse 05/17/2014 Elevated serum creatinine 05/17/2014 Immunizations Immunization Administration Dates Next Due (ADACEL/BOOSTRIX)(10 YR UP) TDAP VACCINE, 0.5ML, IM 02/22/2016 INFLUENZA VACCINE QUADRIVALENT 3 YR UP PF IM 11/2015 Family History Medical History Relation Name Comments Other Father MVA Relation Name Status Comments Father Mother Alive Social History Tobacco Use Types Packs/Day Years Used Date Smoking Tobacco: Never Alcohol Use Standard Drinks/Week Comments Yes 0 (1 standard drink = 0.6 oz pur e alcohol) MONTHLY Sex and Gender Information Value Date Recorded Sex Assigned at Not on file Legal Sex Male 4:22 AM CDT Gender Identity Not on file Sexual Orientation Not on file Occupation Industry Job Start Date Job End Date Not on file Not on file Not on file Not on file Last Filed Vital Signs Vital Sign Reading Time Taken Comments Blood Pressure 133/80 02/23/2016 11:05 AM CDT Pulse 61 02/23/2016 5:30 AM CDT Temperature 36.4 C (97.5 F) 02/23/2016 11:05 AM CDT Respiratory Rate 16 02/23/2016 11:0 5 AM CDT Oxygen Saturation 96% 02/23/2016 11: 05 AM CDT Inhaled Oxygen Concentration - - Weight 76.6 kg (168 lb 12.8 oz) 02/22/2016 5:18 PM CDT Height 167.6 cm (5' 6) 02/22/2016 5:18 PM CDT Body Mass Index 27.25 02/22/2016 5:18 PM CDT Plan of Treatment Health Maintenance Due Date Last Done Comments COLORECTAL SCREENING 2001 Colorectal Cancer Screening 2001 FIT-DNA Q 3 years 2001 FIT/FOBT Q 1 year 2001 Flex Sig/CT Colonography Q 5 years 2001 PNEUMOCOCCAL VACCINE 50+ YEARS (1 of 1 - PCV) 05/28/20 06 ZOSTER VACCINE (1 of 2) 2006 INFLUENZA VACCINE (#1) 2025 02/23/2016 DTAP/TDAP/TD VACCINES (2 - Td or Tdap) 02/21/2026 RSV VACCINE (60+ or ) (1 - 1-dose 75+ series) 2031 [id number] [place] [address] MCR MCR Advance Directives For more information, please contact: [phone] * Full Code (Latest Code Status on File) Date Activated Date Inactivated Comments 02/22/2016 5:14 PM 02/23/2016 6:19 PM * Full Code Date Activated Date Inactivated Comments 05/17/2014 9:54 AM 05/22/2014 12:50 PM * Full Code Date Activated Date Inactivated Comments 05/17/2014 9:46 AM 05/17/2014 9:54 AM Care Teams Keno Manager Relationship Specialty Start Date End Date Osiel Laurent MD PCP - General Family Practice 05/17/15
--- OUTSIDE RECORDS SUMMARY | 2025-09-29 20:58 | XMS_ITS | Encounter Summary ---
Author Organization [facility] Address [address] [place] [address] Care Team Providers Care Aerospace Products Sales Engineer Name Role Phone Cass Newsome Unavailable [facility] Osiel Dove MD Primary Care Provider [phone] Encounter Details Date Type Department Care Team (Late st Contact Info) Description 08/24/2025 Results Follow-Up [facility] Family Medicine at [address] [place] [address] Lizett Tolentino NP [address] [place] [address] [address] [place] [address] XR Knee Right 4+ Vw Social History Tobacco Use Types Packs/Day Years Used Date Smoking Tobacco: Never Passive Smoke Exposure: Current Smokeless Tobacco: Never Alcohol Use Standard Drinks/Week Comments Not Currently 0 (1 standard drink = 0.6 oz pur e alcohol) [facility] Utilities Answer Date Recorded In the past 12 months has [employer], gas, oil, or water company threatened [...] often do you attend chur ch or muslim services? Never 11/14/2023 Do you belong to any clubs o r organizations such as taoist groups, unions, fraternal or athletic groups, or [...] place to sleep or slept in a care home (including now)? 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 Gender Identity Not on file Sexual Orientation Not on file Occupation Industry Job Start Date Job End Date retired Not on file Not on file Not on file documented as of this encounter Plan of Treatment Not on file documented as of this encounter Visit Diagnoses Not on filedocumented in this encounter Care Teams Aerospace Products Sales Engineer Relationship Specialty Start Date End Date Osiel Gann MD [address] [facility] [address] [place] [address] [place] [id number] PCP - General Family Medicine 08/23/[address] [facility] 10/13/23 documented as of this encounter
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
== END 2025-09-29 15:27 | disposition home or self-care (01) ==
PROVIDERS: PCP Family Medicine; Visit Provider Internal Medicine Interventional Cardiology
DX: I10 Essential (primary) hypertension (principal)
CPT/HCPCS: 36415; 80048

== ENCOUNTER 2025-11-07 11:19 | Emergency (ER) | payer MEDICARE, SELFPAY ==
--- NOTE | ~2025-11-07 | XR_ITS ---
Examination: XR knee LT 3V Clinical History: knee pain, swelling, no known trauma ANTERIOR KNEE SWELLING Comparison: None Technique: 3 views left ankle Findings/impression: 1. Severe peripatellar soft tissue swelling. 2. No fracture, dislocation, or effusion. 3. No evidence of osteomyelitis or subcutaneous gas. Reviewed, dictated and finalized at location R. OR [employer]
[2025-11-07 11:36] VITALS: BP 139/86; PULSE 69; RESP 18; TEMP 36.8; O2SAT 100
--- NOTE | 2025-11-07 12:40 | ED_ITS ---
HPI - Extremity Injury (Lower) General Chief Complaint: Extremity Injury, Lower Stated Complaint: left leg swelling Time Seen by Provider: 11/07/25 12:00 Source: patient Mode of arrival: ambulatory Limitations: no limitations History of Present Illness HPI Narrative: This is a 70-year-old male with history of hypertension, CHF, anxiety who presents to the ED for left knee pain. Patient states for the past week he has been having left knee pain and swelling. Family states that it did feel warm. They called his PCP this morning who advised to come to ED for evaluation of a blood clot. Patient denies any swelling to the leg distal to that. Denies fevers, chills. No history of gout or diabetes. Related Data Allergies Allergy/AdvReac Type Severity Reaction Status Date / Time No Known Allergies Allergy Verified 11/07/25 11:22 Review of Systems Review of Systems: Gen.: Denies fevers or chills Eyes: Denies eye pain or visual change ENT: Denies congestion Respiratory: Denies shortness of breath or cough CV: Denies chest pain or palpitations GI: Denies abdominal pain nausea, emesis or diarrhea denies burning, urgency, frequency or hematuria Musculoskeletal: As per HPI Neuro: Denies numbness, tingling, weakness or focal weakness Skin: Denies rash Except as documented, all other systems reviewed and negative FORMERLY [facility] Past Medical History Medical History Hypertension Surgical History Surgical History Status post left rotator cuff repair Social History Social History Smoking status: Current every day smoker Substance use: never Substance use type: does not use Lack of Transportation: No Lack of Food: Never True Current Housing: I Have Housing Concerned About Future Housing: No Difficulty Paying Gas/Electric Bills: No Difficulty Paying for Meds: No Currently Unemployed: No Education: High School Diploma/GED Difficulty w/ Childcare or Family Care: No Exam Narrative: APPEARANCE: No acute distress, nontoxic, resting in bed EYES: EOMI HEENT: Normocephalic, atraumatic, OMM RESPIRATORY: No respiratory distress Clear to auscultation bilaterally with no rhonchi wheezing or rales. CARDIOVASCULAR: Regular rate and rhythm without murmurs rubs or gallops. ABDOMINAL: Soft, nontender, nondistended, no rebound or guarding MUSCULOSKELETAl: Swelling over the left patella with associated tenderness to palpation, mild warmth to palpation. Range of motion limited due to swelling. No lateral or medial joint line tenderness. NEURO: Awake and alert. Following commands, speech normal, no focal deficits SKIN:: Warm, dry. No rashes lesions or abrasions PSYCHIATRIC: Normal affect/mood, Course Vital Signs Vital signs: Vital Signs Temperature 98.2 F 11/07/25 11:36 Pulse Rate 69 11/07/25 11:36 Respiratory Rate 18 11/07/25 11:36 Blood Pressure 139/86 11/07/25 11:36 Pulse Oximetry 100 11/07/25 11:36 Temperature 98.2 F 11/07/25 11:36 Pulse Rate 69 11/07/25 11:36 Respiratory Rate 18 11/07/25 11:36 Blood Pressure 139/86 11/07/25 11:36 Pulse Oximetry 100 11/07/25 11:36 MDM MDM Narrative Medical decision making narrative: 70-year-old male Presenting for left knee pain and swelling. On initial evaluation patient was in no acute distress afebrile, hemodynamic stable. Differentials include but are not limited to: Septic arthritis, septic bursitis, bursitis, gout Notable exam findings: Left knee had prepatellar swelling without any involvement of the joint itself. Mild warmth to palpation but no erythema X-rays as interpreted by Radiology: X-ray left knee: Severe peripatellar tissue swelling with no joint effusion or fractures. Patient's symptoms are most consistent with a possible septic bursitis. He was given Toradol with some mild improvement of his symptoms. He will be started on a dose of Keflex. He was advised follow-up with PCP in the next week for further evaluation. Patient was agreeable to this plan. Given strict return precautions. Differential Diagnosis Differential Diagnosis: Septic arthritis, septic bursitis, bursitis, gout Imaging Data Attestation: I personally reviewed and interpreted this imaging study as follows: Discharge Plan Discharge Clinical Impression: Bursitis, prepatellar, left Patient Disposition: Home Condition: Stable Instructions: Antibiotic Form, Knee Bursitis (ED) Additional Instructions: X-ray renew was reassuring. You likely have a infection and swelling of the bursa sac on top of your knee cap. This can be treated supportively and with some antibiotics. You were given a prescription for Keflex, take this as prescribed. You may take Tylenol and ibuprofen for the pain. I would recommend ice to the area 15 minutes on 15 minutes off and elevation. Return to the ED for any new or worsening symptoms. For pain, discomfort or temperature greater than or equal to 100.8 ?F please alternate the following 2 medications as needed. First medication- acetaminophen/Tylenol- 1000mg every 6-8 hours as needed for above indications. Second medication- ibuprofen/Motrin-600mg every 6-8 hours as needed for above indication. Patient Language: Irish Prescriptions: New cephalexin 500 mg capsule 500 mg PO Q8H 7 Days Qty: 21 0RF No Action methocarbamol 500 mg tablet 500 mg PO TID Qty: 30 0RF Follow-up/Referrals: Sanjuanita,Osiel Saez MD [Primary Care Provider, Unknown]
[2025-11-07] MEDS: KETOROLAC 30 MG/ML VIAL (*BKC) IM (13:24)
[2025-11-07 14:00] VITALS: BP 120/82; PULSE 80; RESP 18; O2SAT 99
== END 2025-11-07 14:05 | disposition home or self-care (01) ==
PROVIDERS: Emergency Provider Student in an Organized Health Care Education/Training Program; PCP Family Medicine
DX: M70.42 Prepatellar bursitis, left knee (principal); F17.210 Nicotine dependence, cigarettes, uncomplicated; I10 Essential (primary) hypertension
CPT/HCPCS: 73562; 96372; 99283; J1885